=== PATIENT | female | born 1960 | race Caucasian/White ===

== ENCOUNTER 2021-06-07 07:49 | Outpatient (REF) | payer OTHER, SELFPAY ==
[2021-06-07 08:04] LABS: MANUAL DIFF FLAG NO
[2021-06-07 08:06] LABS: Basophils Percent Auto 0.6 % (0-2); Eosinophils Absolute Auto 0.2 X10*3/uL (0.0-0.4); Eosinophils Percent Auto 3.3 % (0-4); Hematocrit 43.6 % (37-47); Imm Gran Abs Auto 0.01 X10*3/uL (0.00-0.03); Imm Gran Pct Auto 0.2 % (0.0-0.4); Lymphocytes Absolute Auto 2.1 X10*3/uL (1.2-4.9); Lymphocytes Percent Auto 40.6 % (20-40); Mean Corpuscular HGB Conc 32.1 g/dl (31.0-35.0); Mean Corpuscular Hemoglobin 27.5 pg (27.0-33.0); Mean Corpuscular Volume 85.7 fL (80-98); Mean Platelet Volume 9.5 fL (9.4-12.3); Monocytes Absolute Auto 0.5 X10*3/uL (0.1-1.2); Monocytes Percent Auto 10.2 % (2-11); Neutrophils Absolute Auto 2.4 X10*3/uL (2.0-8.3); Neutrophils Percent Auto 45.1 % (45-73); Platelet Count 310 X10*3/uL (160-400); Red Blood Count 5.09 X10*6/uL (4.20-5.50); Red Cell Distribution Width 13.4 % (11.0-16.0); White Blood Count 5.2 X10*3/uL (4.8-10.8)
[2021-06-07 08:40] LABS: Alanine Aminotransferase 17 U/L (0-31); Alkaline Phosphatase 54 U/L (39-117); Anion Gap 11 (12-20); Aspartate Amino Transferase 16 U/L (5-31); Bilirubin Total 0.7 mg/dL (0.0-1.0); Blood Urea Nitrogen 14 mg/dL (9-16); Calcium 9.8 mg/dL (8.4-10.2); Carbon Dioxide 29 mmol/L (22-29); Chloride 107 mmol/L (96-108); Cholesterol 211 mg/dL; Estimated Glomerular Filt Rate > 60; Glucose Fasting 89 mg/dL (60-99); HDL Cholesterol 51 mg/dL; LDL Cholesterol Calculated 130 mg/dl; Potassium 4.7 mmol/L (3.3-5.1); Sodium 142 mmol/L (135-145); Total Protein 6.7 g/dL (6.5-8.0); Triglycerides 154 mg/dL
== END 2021-06-07 07:50 | disposition home or self-care (01) ==
LOC: HO.LAB 07:49
PROVIDERS: PCP Internal Medicine; Visit Provider Internal Medicine
DX: Z00.00 Encounter for general adult medical examination without abnormal findings (principal); E03.9 Hypothyroidism, unspecified; E11.9 Type 2 diabetes mellitus without complications
CPT/HCPCS: 36415; 80053; 80061; 84443; 85025

== ENCOUNTER → 2021-11-14 07:36 | Outpatient (BNVA) | payer OTHER, SELFPAY | PROVIDERS: PCP Internal Medicine; Referring Provider Internal Medicine; Visit Provider Physician Assistant ==

== ENCOUNTER 2022-02-18 09:51 | Day surgery (SDC) | payer OTHER, SELFPAY ==
[2022-02-13 08:22] VITALS: BMI 28.2
--- NOTE | 2022-02-17 10:56 | P.CONAN_ITS ---
Documented by User: Arti Augustin NP 02/17/22 10:56 HPI - Anesthesia Eval Consult details Narrative: 61yo F for Colonoscopy PMFSH Active Problems Active Problems: All Active Problems (Updated 11/14/21 @ 08:28 by Viviana Baig PA-C) Encounter for screening colonoscopy (Acute) Asthma (Acute) Physical exam (Acute) Past Medical History Medical History Asthma Family History Family History Mother No problems noted. Father No problems noted. Surgical History Surgical History History of appendectomy History of section History of tonsillectomy Hx of colonoscopy Hx of wisdom tooth extraction Social History Social History Housing: House Patient Tobacco Use Status: Former Tobacco user Quit Date: 20 yrs ago Tobacco use type: Cigarette e-Cigarette/Vaping Use: Never Used Second Hand Smoke Exposure: No Use of substances other than those prescribed or required for medical reasons: No Are you DNR?: No Advance Directives: No Advance Directives Information Provided: Yes service: No Current occupational status: employed Meds Allergies Allergy/AdvReac Type Severity Reaction Status Date / Time No Known Allergies Allergy Verified 11/14/21 07:45 Home Medications Medication Instructions Recorded Confirmed Last Taken Type albuterol sulfate 90 mcg/actuation 2 puff INHALATION Q4-6H PRN 06/05/21 11/14/21 Unknown History aerosol inhaler loratadine 10 mg tablet (Claritin) 10 mg PO DAILY 11/14/21 11/14/21 Unknown History Exam Exam Date and Time: February 17, 2022 1056 Height,Weight and Vital Signs: Height 5 ft 6 in Weight 79.379 kg Assessment and Plan Assessment Anesthesia Assessment: Chart Reviewed Documented by User: Faisal Yost MD 02/18/22 11:21 COUNTS INCLUDE 234 BEDS AT THE [facility] Past Medical History Medical History Asthma Family History Family History Mother No problems noted. Father No problems noted. Family history of problems with anesthesia: No Surgical History Surgical History History of appendectomy History of section History of tonsillectomy Hx of colonoscopy Hx of wisdom tooth extraction History of Problems with Anesthesia: No Social History Social History Housing: House Patient Tobacco Use Status: Former Tobacco user Quit Date: 20 yrs ago Tobacco use type: Cigarette e-Cigarette/Vaping Use: Never Used Second Hand Smoke Exposure: No Use of substances other than those prescribed or required for medical reasons: No Are you DNR?: No Advance Directives: No Advance Directives Information Provided: Yes service: No Current occupational status: employed Meds Allergies Allergy/AdvReac Type Severity Reaction Status Date / Time No Known Allergies Allergy Verified 11/14/21 07:45 Home Medications Medication Instructions Recorded Confirmed Last Taken Type albuterol sulfate 90 mcg/actuation 2 puff INHALATION Q4-6H PRN 06/05/21 11/14/21 Unknown History aerosol inhaler loratadine 10 mg tablet (Claritin) 10 mg PO DAILY 11/14/21 11/14/21 Unknown History Exam Airway Mallampati Class: I TM Dist: >3cm Neck ROM: Full Loose/Missing/Broken Teeth: Yes Assessment and Plan Assessment Anesthesia Assessment: Anesthesia Plan Discussed Final Anesthetic Review Family History of Problems with Anesthesia: No History of Problems with Anesthesia: No NPO: Yes ASA Class: II Final Preanesthetic Review: No Changes in Pt Med Stat, Meds/Allgs Chart Reviewed , Consent Obtained/Reviewed and Anes Risks/Benef Reviewed Patient Risk: Low Procedure Risk: Low Anesthetic Plan Anesthetic Plan: MAC: Disposition: Standard PACU
--- NOTE | 2022-02-18 10:01 | P.HPSUR_ITS ---
Pre-Procedural Eval Section A Date of Service: 02/18/22 Section B Chief Complaint: screening Relevant Family History (Specify if Yes): No Relevant Social History: None Present Medications: see Short Stay Collaborative assessment Medical History: Significant History (Asthma) History of Previous Operations: Relevant previous surgery/procedure and date(s) (History of appendectomy History of section History of tonsillectomy) Allergies: Allergies Allergy/AdvReac Type Severity Reaction Status Date / Time No Known Allergies Allergy Verified 11/14/21 07:45 Review of Systems Sugical H&P ROS: Negative: Constitution, Cardiovascular, Respiratory, Neurolo gical, Psychiatric, Hem-Onc, Allergic/Immunologic, Gastrointestinal, Genitourinary, Musculoskeletal, Integumentary, Endocrine and Eyes/Ears/Nose/Throat Exam Surgical H&P Exam: Normal: HEENT, Normal: Heart, Normal: Lungs, Normal: Extremities, Normal: Abdomen, Normal: Skin and Normal: Neurological Plan Diagnosis/Plan: Unchanged I have reviewed the history and physical and performed a pertinent physical examination on my patient. No changes have occurred unless specified.
[2022-02-18 10:07] VITALS: BP 123/82; PULSE 77; RESP 16; TEMP 36.6; O2SAT 96
[2022-02-18] MEDS: Lactated Ringers 1,000 ML 100 ML IVCONT (10:29)
--- NOTE | 2022-02-18 10:48 | PM.OP ---
Brief Operative Note Date of Service: 02/18/22 Pre-op diagnosis: screening colonoscopy Post-op diagnosis: same Procedure: see op note Surgeon: Jesica Banuelos MD Anesthesia: MAC Was an International Travel Consultant used for this Procedure?: No Estimated blood loss (mL): 0 Condition: stable Disposition: PACU
--- NOTE | 2022-02-18 10:49 | W.PM.OPN ---
Operative Note Operative Note Date of Service: 02/18/22 Narrative: Operative Information Procedure Description: Colonoscopy Indication: screening colonoscopy Anesthesia: MAC COLONOSCOPY Instrument: Olympus variable stiffness pediatric scope 190L Colonoscopy Monitoring: Vital signs and clinical assessment, continuous EKG monitoring, Pulse oximetry, Carbon Dioxide monitoring and blood pressure monitoring were done throughout the procedure. Colon withdrawal time was 9 minutes. Procedure: The patient was placed in the left lateral decubitis position and pre-procedure medications were administered. After a digital rectal examination of the ano-rectum, the video colonoscope was inserted into the rectum and advanced through the colon to the cecum/TI. The colonoscope was slowly withdrawn in a retrograde panoramic fashion and the colon mucosa was carefully examined including a retroflexed view of the rectum. Findings and interventions are described below. Procedure Difficulty: moderate, pressure applied to reach cecum Findings: Terminal Ileum-normal Right sided retroflexion --normal Cecum:normal Ascending Colon: 5-6 mm sessile polyp removed with cold forceps Transverse Colon -normal Descending Colon:normal Sigmoid Colon: moderate severe diverticulosis with thickened mucosa Rectum: Retroflexion with medium sized internal hemorrhoids, grade I Anorectum - normal Colon preparation: [place] Bowel Preparation Scale Right colon; 3 Transverse colon: 2 Left colon; 2 (0 = Unprepared colon segment with mucosa not seen due to solid stool that cannot be cleared. 1 = Portion of mucosa of the colon segment seen, but other areas of the colon segment not well seen due to staining, residual stool and/or opaque liquid. 2 = Minor amount of residual staining, small fragments of stool and/or opaque liquid, but mucosa of colon segment seen well. 3 = Entire mucosa of colon segment seen well with no residual staining, small fragments of stool or opaque liquid) Impression and Post Procedure Diagnosis: polyp internal hemorrhoids diverticular disease Plan: High fiber diet leaflet Avoid straining at stool, epsom salts and sitz bath, anusol supps or cream Repeat Colonoscopy in 5-7 years if adenomatous polyp, 10 yrs if benign or earlier if clinically indicated Above findings were reviewed with the patient and relevant handouts were provided if indicated.
[2022-02-18 11:35] VITALS: BP 104/64; PULSE 68; RESP 14; TEMP 36.6; O2SAT 98
[2022-02-18 11:50] VITALS: BP 116/74; PULSE 62; RESP 16; TEMP 36.6; O2SAT 97
== END 2022-02-18 12:22 | disposition home or self-care (01) ==
PROVIDERS: PCP Internal Medicine; Visit Provider Internal Medicine Gastroenterology
PROC: 0DJD8ZZ Inspection of Lower Intestinal Tract, Via Natural or Artificial Opening Endoscopic (ICD-10-PCS; CPT 45378; principal; 2022-02-18 11:00)
DX: Z12.11 Encounter for screening for malignant neoplasm of colon (principal); Z80.0 Family history of malignant neoplasm of digestive organs; K63.5 Polyp of colon; K57.30 Diverticulosis of large intestine without perforation or abscess without bleeding; K64.0 First degree hemorrhoids; K59.00 Constipation, unspecified; J45.909 Unspecified asthma, uncomplicated; Z87.891 Personal history of nicotine dependence
CPT/HCPCS: 45380; 88305

== ENCOUNTER 2022-06-10 09:43 | Outpatient (REF) | payer OTHER, SELFPAY ==
--- NOTE | ~2022-06-10 | XR_ITS ---
EXAMINATION: BILATERAL HIP SERIES CLINICAL INFORMATION: Pain in the hips COMPARISON: None TECHNIQUE: AP and lateral views of each hip FINDINGS: Right hip: The hip joint and surrounding bone and soft tissues are normal. No fracture or degenerative change. Left hip: Hip joint normal without degenerative change. Surrounding bone and soft tissues unremarkable. XR/XR hip LT 1V IMPRESSION: Normal x-ray series of the right and left hips
--- NOTE | ~2022-06-10 | XR_ITS ---
EXAMINATION: XR LUMBOSACRAL SPINE CLINICAL INFORMATION: Dorsalgia. Hip pain and lower back pain. COMPARISON: None TECHNIQUE: Three views of the lumbosacral spine. FINDINGS: Vertebral bodies are normally aligned, normal height. Multilevel degenerative disc changes with endplate osteophytes and mild disc space narrowing at all levels beginning at the T10-T11 disc space and extending through L5-S1. Facet joints appear unremarkable. There is no fracture or bone lesion. The partially visualized pelvis including sacroiliac joints is normal. Surrounding soft tissues normal. XR/XR lumbar spine 2-3V IMPRESSION: Mild multilevel spondylosis throughout the visualized thoracolumbar sacral spine.
--- NOTE | ~2022-06-10 | XR_ITS ---
EXAMINATION: BILATERAL HIP SERIES CLINICAL INFORMATION: Pain in the hips COMPARISON: None TECHNIQUE: AP and lateral views of each hip FINDINGS: Right hip: The hip joint and surrounding bone and soft tissues are normal. No fracture or degenerative change. Left hip: Hip joint normal without degenerative change. Surrounding bone and soft tissues unremarkable. XR/XR hip RT min 2V IMPRESSION: Normal x-ray series of the right and left hips
[2022-06-10 09:59] LABS: MANUAL DIFF FLAG NO
[2022-06-10 10:55] LABS: Basophils Percent Auto 0.5 % (0-2); Eosinophils Absolute Auto 0.1 X10*3/uL (0.0-0.4); Eosinophils Percent Auto 2.7 % (0-4); Hemoglobin 13.7 g/dl (12.0-16.0); Imm Gran Abs Auto 0.01 X10*3/uL (0.00-0.03); Imm Gran Pct Auto 0.2 % (0.0-0.4); Lymphocytes Absolute Auto 1.7 X10*3/uL (1.2-4.9); Lymphocytes Percent Auto 41.4 % (20-40); Mean Corpuscular HGB Conc 32.6 g/dl (31.0-35.0); Mean Corpuscular Hemoglobin 28.2 pg (27.0-33.0); Mean Corpuscular Volume 86.6 fL (80.0-98.0); Mean Platelet Volume 9.9 fL (9.4-12.3); Monocytes Absolute Auto 0.4 X10*3/uL (0.1-1.2); Monocytes Percent Auto 10.7 % (2-11); Neutrophils Absolute Auto 1.8 x10*3/uL (2.0-8.3); Neutrophils Percent Auto 44.5 % (45-73); Platelet Count 322 X10*3/uL (160-400); Red Blood Count 4.85 X10*6/uL (4.20-5.50); Red Cell Distribution Width 13.2 % (11.0-16.0); White Blood Count 4.1 X10*3/uL (4.8-10.8)
[2022-06-10 11:19] LABS: Alanine Aminotransferase 23 U/L (0-31); Albumin Level 4.1 g/dL (3.5-5.0); Alkaline Phosphatase 51 U/L (39-117); Anion Gap 13 (12-20); Aspartate Amino Transferase 19 U/L (5-31); Bilirubin Total 0.6 mg/dL (0.0-1.0); Blood Urea Nitrogen 17 mg/dL (9-16); Calcium 9.3 mg/dL (8.4-10.2); Carbon Dioxide 28 mmol/L (22-29); Chloride 106 mmol/L (96-108); Cholesterol 219 mg/dL; Estimated Glomerular Filt Rate > 60; Glucose Fasting 85 mg/dL (60-99); HDL Cholesterol 50 mg/dL; LDL Cholesterol Calculated 149 mg/dl; Potassium 4.9 mmol/L (3.3-5.1); Sodium 142 mmol/L (135-145); Total Protein 6.8 g/dL (6.5-8.0); Triglycerides 102 mg/dL
[2022-06-10 11:29] LABS: Thyroid Stimulating Hormone 0.87 uIU/mL (0.32-4.0)
== END 2022-06-10 09:44 | disposition home or self-care (01) ==
LOC: HO.XRAY 09:43
PROVIDERS: PCP Internal Medicine; Visit Provider Internal Medicine
DX: Z13.0 Encounter for screening for diseases of the blood and blood-forming organs and certain disorders involving the immune mechanism (principal); I10 Essential (primary) hypertension; E78.5 Hyperlipidemia, unspecified; E03.9 Hypothyroidism, unspecified; M54.9 Dorsalgia, unspecified; M25.552 Pain in left hip; M25.551 Pain in right hip
CPT/HCPCS: 36415; 72100; 73501; 73502; 80053; 80061; 84443; 85025

== ENCOUNTER 2023-06-11 08:44 | Outpatient (AMB) | payer OTHER, SELFPAY ==
[2023-06-11 08:46] VITALS: BP 122/68; PULSE 62; O2SAT 99; BMI 27.6
--- NOTE | 2023-06-11 08:46 | MHC.PC.OV ---
Vital Signs 06/11/23 08:46 Height 5 ft 6 in Weight 171 lb BMI 27.6 BP 122/68 Blood Pressure Location Lt brachial Position Sitting Pulse 62 Pulse Source Pulse Oximeter Pulse Oximetry (%) 99 Oxygen Delivery Method Room Air Intake Visit Reasons: Annual Exam Appraisal Analyst Required: No Prosthetics Assistant: Not Required per policy Accompanied by: Self / Same As Patient Allergies No Known Allergies Allergy (Verified 06/11/23 08:47) Medication List - Last Reconciled 06/11/23 by Rodriguez Feldman MD albuterol sulfate 90 mcg/actuation 2 puffs inhalation Q4-6H PRN loratadine (Claritin) 10 mg PO DAILY montelukast 10 mg PO BEDTIME Tobacco use date assessed: 06/11/23 Dental Screening Dental Screen Date: 06/11/23 Did you have a dental visit in the last 12 months?: Yes Did you have a dental problem in the last 6 months where you did not have access to dental care?: No Was dental information given to patient?: Patient has dentist HPI Annual Exam HPI Details asthma; stable [facility] Medical History (Updated 06/11/23 @ 09:21 by Rodriguez Feldman MD) Physical exam Asthma Surgical History Hx of wisdom tooth extraction Hx of colonoscopy History of section History of tonsillectomy History of appendectomy Family History Mother No problems noted. Father No problems noted. Social History Housing: House Patient Tobacco Use Status: Former Tobacco user Quit Date: 20 yrs ago Tobacco use type: Cigarette e-Cigarette/Vaping Use: Never Used Second Hand Smoke Exposure: No service: No Current occupational status: employed Cognitive needs: No Hearing needs: No Vision needs: No Questionnaire PHQ-9 Over the last 2 weeks, how often have you been bothered by any of the following problems? 1. Little interest or pleasure in doing things: not at all 2. Feeling down, depressed, or hopeless: not at all 3. Trouble falling or staying asleep, or sleeping too much: not at all 4. Feeling tired or having little energy: not at all 5. Poor appetite or overeating: not at all 6. Feeling bad about yourself - or that you are a failure or have let yourself or your family down: not at all 7. Trouble concentrating on things, such as reading the newspaper or watching television: not at all 8. Moving or speaking so slowly that other people could have noticed. Or the opposite - being so fidgety or restless that you have been moving around a lot more than usual: not at all 9. Thoughts that you would be better off or of hurting yourself in some way: not at all Total score: 0 Depression Screening Interpretation: Negative 75965 - PHQ-9 Billing: Yes Source: Developed by Drs. Caleb Lovett, Sarah Smith, Reinier Galdamez and colleagues, with an educational carroll from [employer]. Thrive Questionnaire Date Thrive assessed: 06/11/23 I am a: Patient What is your living situation today?: I have a steady place to live Within the past 12 months, did the food you bought not last and you didn't have the money to get more?: Never true Within the past 12 months, did you worry whether your food would run out before you got money to buy more?: Never true Do you have trouble paying for medicines?: No Do you have trouble getting transportation to medical appointments?: No Do you have trouble paying your heating and electricity bill?: No Do you have trouble taking care of your child, family member or friend?: No Do you have trouble with day-to-day activities such as bathing, preparing meals, shopping, managing finances, etc.?: No Are you currently unemployed and looking for a job?: No Are you interested in more education?: No Please select the resources that you would like help with: None AUDIT C Alcohol Use Questionnaire (AUDIT-C) 1. How often do you have a drink containing alcohol?: 2-3 times a week 2. How many drinks containing alcohol do you have on a typical day when you are drinking?: 1 or 2 3. How often do you have six or more drinks on one occasion?: Never Total Score: 3 Score Reviewed/Action Taken: Yes NATA-7 AMB Questionnaire NATA-7 Date NATA - 7 assessed: 06/11/23 Feeling nervous, anxious, or on edge: 0 = Not at all Not being able to stop or control worryin = Not at all Worrying too much about different things: 0 = Not at all Trouble relaxin = Not at all Being so restless that it is hard to sit still: 0 = Not at all Becoming easily annoyed or irritable: 0 = Not at all Feeling afraid as if something awful might happen: 0 = Not at all Total NATA-7 score (0-4 normal; 5-9 mild; 10-14 moderate; 15-21 severe): 0 Source: Developed by Drs. Caleb Lovett, Sarah Smith, Reinier Galdamez and colleagues, with an educational carroll from [employer]. NATA-7 Assessment Billing NATA-7 Assessment Tool: NATA-7 Assessment 54364 Review of Systems Const Denies chills, Denies fatigue, Denies headache(s) and Denies weight loss Eyes Denies change in vision, Denies diplopia and Denies eye pain ENT Denies vertigo, Denies dizziness, Denies headache(s) and Denies nasal discharge Card Denies chest pain, Denies rapid heart rate and Denies dyspnea on exertion Resp Denies chest congestion, Denies cough, Denies pain with cough and Denies dyspnea on exertion GI Denies abdominal pain, Denies hematochezia and Denies change in bowel habits Musc Denies myalgias, Denies arthralgias and Denies joint swelling Skin/Breast Denies lesions and Denies unusual bruising Neuro Denies vertigo, Denies dizziness, Denies headache(s) and Denies focal weakness Endo Denies fatigue Physical exam (Primary Care) Vital Signs: Last Vital Signs Pulse 62 06/11/23 08:46 BP 122/68 06/11/23 08:46 Pulse Ox 99 06/11/23 08:46 Oxygen Delivery Method Room Air 06/11/23 08:46 BMI result Body Mass Index 27.6 Tobacco/Smoking Status: Tobacco use Status Tobacco use date assessed 06/11/23 06/11/23 08:52 Patient Tobacco Use Status Former Tobacco user 06/11/23 08:52 Tobacco use type Cigarette 06/11/23 08:52 e-Cigarette/Vaping Use Never Used 06/11/23 08:52 PHQ-9: PHQ-9 Score PHQ-9: Total score 0 06/11/23 08:52 Depression Screening Interpretation: Negative Thrive Assessment: Date of Thrive Assessment Date Thrive assessed 06/11/23 06/11/23 08:52 Const General: cooperative, healthy appearing and no acute distress Orientation/consciousness: oriented to person, oriented to place and oriented to time HENMT Head: Yes normal to inspection, Yes normocephalic and Yes atraumatic Mouth: Normal oral and palatal mucosa present and tongue normal Throat: Yes posterior oropharynx normal and Yes uvula midline Eyes General: appearance normal, both eyes and all related structures Neck Neck: Yes normal visual inspection, Yes full ROM and Yes no lymphadenopathy Thyroid: Thyroid normal Carotids: normal carotid upstroke Chest Chest palpation & inspection: normal inspection of the chest Resp Effort & Inspection: normal respiratory effort and able to speak in complete sentences Auscultation: clear to auscultation bilaterally Cardio Jugular venous distension: no JVD Palpation: normal PMI Rate: regular rate Rhythm: regular rhythm Heart sounds: S1 normal heart sound present and S2 normal heart sound present GI Inspection: Yes normal to inspection Palpation (GI): Soft to palpation and No hepatosplenomegaly present Auscultation: normal bowel sounds General: Yes no CVA tenderness Back/Spine/Pelvis Back: no CVA tenderness Skin General skin exam: no rashes or lesions noted Neuro General: oriented to person, oriented to place and oriented to time Extrem General: Yes normal to inspection and Yes full ROM Assessment and Plan Assessment & Plan (1) Physical exam: Code(s): Z00.00 - Encounter for general adult medical examination without abnormal findings Plan: stable; do labs (2) Asthma: Code(s): J45.909 - Unspecified asthma, uncomplicated Plan: stable; same rx Orders: Orders Thyroid Stimulating Hormone Today E03.9 - Hypothyroidism, unspecified Lipid Panel Today E78.5 - Hyperlipidemia, unspecified Comprehensive Mather. Panel Fast Today N28.9 - Disorder of kidney and ureter, unspecified Complete Blood Count Auto Diff Today D64.9 - Anemia, unspecified Coding Level of Care Code Est Pt Prev Care 40-64y(74246) Diagnoses Physical exam Z00.00 Asthma J45.909 Additional Codes NATA-7 Assessment Billing - NATA-7 Assessment Tool: NATA-7 Assessment 60944 ([id number])
== END 2023-06-11 09:09 | disposition home or self-care (01) ==
PROVIDERS: PCP Internal Medicine; Visit Provider Internal Medicine
DX: Z00.00 Encounter for general adult medical examination without abnormal findings (principal); J45.909 Unspecified asthma, uncomplicated
CPT/HCPCS: 99396

== ENCOUNTER 2023-06-11 09:18 | Outpatient (REF) | payer OTHER, SELFPAY ==
[2023-06-11 09:46] LABS: MANUAL DIFF FLAG NO
[2023-06-11 10:38] LABS: Basophils Percent Auto 0.6 % (0-2); Eosinophils Absolute Auto 0.1 X10*3/uL (0.0-0.4); Eosinophils Percent Auto 2.8 % (0-4); Hematocrit 44.4 % (37.0-47.0); Hemoglobin 14.5 g/dl (12.0-16.0); Imm Gran Abs Auto 0.02 X10*3/uL (0.00-0.03); Imm Gran Pct Auto 0.4 % (0.0-0.4); Lymphocytes Percent Auto 40.4 % (20-40); Mean Corpuscular HGB Conc 32.7 g/dl (31.0-35.0); Mean Corpuscular Hemoglobin 28.3 pg (27.0-33.0); Mean Corpuscular Volume 86.5 fL (80.0-98.0); Mean Platelet Volume 10.2 fL (9.4-12.3); Monocytes Absolute Auto 0.5 X10*3/uL (0.1-1.2); Monocytes Percent Auto 10.7 % (2-11); Neutrophils Absolute Auto 2.3 x10*3/uL (2.0-8.3); Neutrophils Percent Auto 45.1 % (45-73); Platelet Count 318 X10*3/uL (160-400); Red Blood Count 5.13 X10*6/uL (4.20-5.50); Red Cell Distribution Width 13.7 % (11.0-16.0); White Blood Count 5.1 X10*3/uL (4.8-10.8)
[2023-06-11 11:38] LABS: Alanine Aminotransferase 16 U/L (0-31); Albumin Level 4.1 g/dL (3.5-5.0); Alkaline Phosphatase 52 U/L (39-117); Anion Gap 12 (12-20); Aspartate Amino Transferase 18 U/L (5-31); Bilirubin Total 0.5 mg/dL (0.0-1.0); Blood Urea Nitrogen 19 mg/dL (9-16); Calcium 10.4 mg/dL (8.4-10.2); Carbon Dioxide 27 mmol/L (22-29); Chloride 109 mmol/L (96-108); Cholesterol 214 mg/dL (<200); Estimated Glomerular Filt Rate > 60; Glucose Fasting 90 mg/dL (60-99); HDL Cholesterol 45 mg/dL (>40); LDL Cholesterol Calculated 137 mg/dL (<100); Potassium 5.1 mmol/L (3.3-5.1); Sodium 143 mmol/L (135-145); Thyroid Stimulating Hormone 0.96 uIU/mL (0.32-4.0); Total Protein 6.9 g/dL (6.5-8.0); Triglycerides 160 mg/dL (<150)
== END 2023-06-11 09:19 | disposition home or self-care (01) ==
LOC: HO.LAB 09:18
PROVIDERS: PCP Internal Medicine; Visit Provider Internal Medicine
DX: D64.9 Anemia, unspecified (principal); E03.9 Hypothyroidism, unspecified; N28.9 Disorder of kidney and ureter, unspecified; E78.5 Hyperlipidemia, unspecified
CPT/HCPCS: 36415; 80053; 80061; 84443; 85025

== ENCOUNTER 2024-07-13 08:26 | Outpatient (AMB) | payer OTHER, SELFPAY ==
[2024-07-13 08:40] VITALS: BP 112/62; PULSE 68; O2SAT 98; BMI 28.4
--- NOTE | 2024-07-13 08:40 | A.OFFPC_ITS ---
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 Required: No Accompanied by: Self / Same As Patient Allergies No Known Allergies Allergy (Verified 07/13/24 08:40) Medication List - Last Reconciled 07/13/24 by Rodriguez Feldman MD albuterol sulfate 90 mcg/actuation 2 puffs inhalation Q4-6H PRN loratadine (Claritin) 10 mg PO DAILY montelukast 10 mg PO BEDTIME Tobacco use date assessed: 07/13/24 Dental Screening Dental Screen Date: 07/13/24 Did you have a dental visit in the last 12 months?: Yes Did you have a dental problem in the last 6 months where you did not have access to dental care?: No Was dental information given to patient?: Patient has dentist HPI Annual Physical HPI Details asthma stable on rx [facility] Medical History (Updated 06/11/23 @ 09:21 by Rodriguez Feldman MD) Physical exam Asthma Surgical History Hx of wisdom tooth extraction Hx of colonoscopy History of section History of tonsillectomy History of appendectomy Family History Mother No problems noted. Father No problems noted. Social History Housing: House Patient Tobacco Use Status: Former Tobacco user Tobacco use type: Cigarette e-Cigarette/Vaping Use: Never Used Second Hand Smoke Exposure: No service: No Current occupational status: employed Cognitive needs: No Hearing needs: No Vision needs: No Questionnaire PHQ-9 Over the last 2 weeks, how often have you been bothered by any of the following problems? 1. Little interest or pleasure in doing things: not at all 2. Feeling down, depressed, or hopeless: not at all 3. Trouble falling or staying asleep, or sleeping too much: several days 4. Feeling tired or having little energy: several days 5. Poor appetite or overeating: not at all 6. Feeling bad about yourself - or that you are a failure or have let yourself or your family down: not at all 7. Trouble concentrating on things, such as reading the newspaper or watching television: not at all 8. Moving or speaking so slowly that other people could have noticed. Or the opposite - being so fidgety or restless that you have been moving around a lot more than usual: not at all 9. Thoughts that you would be better off or of hurting yourself in some way: not at all Total score: 2 Source: Developed by Drs. Caleb Lovett, Sarah Smith, Reinier Galdamez and colleagues, with an educational carroll from [employer]. Thrive Questionnaire Date Thrive assessed: 06/22/24 I am a: Patient What is your living situation today?: I have a steady place to live Within the past 12 months, did the food you bought not last and you didn't have the money to get more?: Never true Within the past 12 months, did you worry whether your food would run out before you got money to buy more?: Never true Do you have trouble paying for medicines?: No Do you have trouble getting transportation to medical appointments?: No Do you have trouble paying your heating and electricity bill?: No Do you have trouble taking care of your child, family member or friend?: No Do you have trouble with day-to-day activities such as bathing, preparing meals, shopping, managing finances, etc.?: No Are you currently unemployed and looking for a job?: No Are you interested in more education?: No Please select the resources that you would like help with: None Currently or been in a relationship where the following occur: No concerns reported THRIVE Score: 0 AUDIT C Alcohol Use Questionnaire (AUDIT-C) 1. How often do you have a drink containing alcohol?: 2-3 times a week 2. How many drinks containing alcohol do you have on a typical day when you are drinking?: 1 or 2 3. How often do you have six or more drinks on one occasion?: Never Total Score: 3 Score Reviewed/Action Taken: Yes NATA-7 AMB Questionnaire NATA-7 Date NATA - 7 assessed: 07/13/24 Feeling nervous, anxious, or on edge: 0 = Not at all Not being able to stop or control worryin = Not at all Worrying too much about different things: 0 = Not at all Trouble relaxin = Not at all Being so restless that it is hard to sit still: 0 = Not at all Becoming easily annoyed or irritable: 0 = Not at all Feeling afraid as if something awful might happen: 0 = Not at all Total NATA-7 score (0-4 normal; 5-9 mild; 10-14 moderate; 15-21 severe): 0 Source: Developed by Drs. Caleb Lovett, Sarah Smith, Reinier Galdamez and colleagues, with an educational carroll from [employer]. NATA-7 Assessment Billing NATA-7 Assessment Tool: NATA-7 Assessment 51632 Review of Systems Const Denies chills, Denies fatigue, Denies headache(s) and Denies weight loss Eyes Denies change in vision, Denies diplopia and Denies eye pain ENT Denies vertigo, Denies dizziness, Denies headache(s) and Denies nasal discharge Card Denies chest pain, Denies rapid heart rate and Denies dyspnea on exertion Resp Denies chest congestion, Denies cough, Denies pain with cough and Denies dyspnea on exertion GI Denies abdominal pain, Denies hematochezia and Denies change in bowel habits Musc Denies myalgias, Denies arthralgias and Denies joint swelling Skin/Breast Denies lesions and Denies unusual bruising Neuro Denies vertigo, Denies dizziness, Denies headache(s) and Denies focal weakness Endo Denies fatigue Physical exam (Primary Care) Vital Signs: Last Vital Signs Pulse 68 07/13/24 08:40 BP 112/62 07/13/24 08:40 Pulse Ox 98 07/13/24 08:40 Oxygen Delivery Method Room Air 07/13/24 08:40 BMI result Body Mass Index 28.4 Tobacco/Smoking Status: Tobacco use Status Tobacco use date assessed 07/13/24 07/13/24 08:45 Patient Tobacco Use Status Former Tobacco user 07/13/24 08:45 Tobacco use type Cigarette 07/13/24 08:45 e-Cigarette/Vaping Use Never Used 07/13/24 08:45 PHQ-9: PHQ-9 Score PHQ-9: Total score 2 07/13/24 08:45 Thrive Assessment: Date of Thrive Assessment Date Thrive assessed 06/22/24 07/13/24 08:45 Currently or been in a relationship where the following occur: No concerns reported Const General: cooperative, healthy appearing and no acute distress Orientation/consciousness: oriented to person, oriented to place and oriented to time HENMT Head: Yes normal to inspection, Yes normocephalic and Yes atraumatic Mouth: Normal oral and palatal mucosa present and tongue normal Throat: Yes posterior oropharynx normal and Yes uvula midline Eyes General: appearance normal, both eyes and all related structures Neck Neck: Yes normal visual inspection, Yes full ROM and Yes no lymphadenopathy Thyroid: Thyroid normal Carotids: normal carotid upstroke Chest Chest palpation & inspection: normal inspection of the chest Resp Effort & Inspection: normal respiratory effort and able to speak in complete sentences Auscultation: clear to auscultation bilaterally Cardio Jugular venous distension: no JVD Palpation: normal PMI Rate: regular rate Rhythm: regular rhythm Heart sounds: S1 normal heart sound present and S2 normal heart sound present GI Inspection: Yes normal to inspection Palpation (GI): Soft to palpation and No hepatosplenomegaly present Auscultation: normal bowel sounds General: Yes no CVA tenderness Back/Spine/Pelvis Back: no CVA tenderness Skin General skin exam: no rashes or lesions noted Neuro General: oriented to person, oriented to place and oriented to time Extrem General: Yes normal to inspection and Yes full ROM Coding Level of Care Code New Pt Prev Care 40-64y(15724) Diagnoses Physical exam Z00.00 Asthma J45.909 Additional Codes NATA-7 Assessment Billing - NATA-7 Assessment Tool: NATA-7 Assessment [id number] ([id number]) Assessment & Plan Assessment & Plan (1) Physical exam: Code(s): Z00.00 - Encounter for general adult medical examination without abnormal findings Category: Medical Plan: stable; do labs (2) Asthma: Code(s): J45.909 - Unspecified asthma, uncomplicated Category: Medical Plan: stable; same rx Orders: Orders Complete Blood Count Auto Diff Today Z13.0 - Encounter for screening for diseases of the blood and blood-forming organs and certain disorders involving the immune mechanism Lipid Panel Today Z13.220 - Encounter for screening for lipoid disorders Thyroid Stimulating Hormone Today Z13.29 - Encounter for screening for other suspected endocrine disorder Comprehensive [place]es[place]us. Panel Fast Today Z13.9 - Encounter for screening, unspecified Medications: Refilled montelukast 10 mg PO BEDTIME 90 tabs 8RF albuterol sulfate 90 mcg/actuation 2 puffs inhalation Q4-6H PRN 8.5 grams 5RF bronchospasm
== END 2024-07-13 09:02 | disposition home or self-care (01) ==
PROVIDERS: PCP Internal Medicine; Visit Provider Internal Medicine
DX: Z00.00 Encounter for general adult medical examination without abnormal findings (principal); J45.909 Unspecified asthma, uncomplicated

== ENCOUNTER 2024-09-19 08:16 | Outpatient (REF) | payer OTHER, SELFPAY ==
[2024-09-19 16:47] LABS: Influenza A PCR NEGATIVE (Negative); Influenza B PCR NEGATIVE (Negative); Resp Syncy Virus RNA Qual PCR NEGATIVE (Negative); SARS COV2 PCR INHOUSE NEGATIVE (Negative)
== END 2024-09-19 08:17 | disposition home or self-care (01) ==
LOC: HO.LAB 08:16
PROVIDERS: Physician Assistant; PCP Internal Medicine
DX: J06.9 Acute upper respiratory infection, unspecified (principal)
CPT/HCPCS: 0241U

== ENCOUNTER 2024-09-19 08:16 | Outpatient (AMB) | payer OTHER, SELFPAY ==
--- NOTE | 2024-09-19 09:17 | AM.OFFWIN_ITS ---
Intake Vital Signs 09/19/24 09:21 Weight 172 lb BP 122/88 Blood Pressure Location Lt brachial Position Sitting Pulse 86 Pulse Source Pulse Oximeter Temp 98.8 F Temp Source Oral Pulse Oximetry (%) 97 Oxygen Delivery Method Room Air Intake Visit Reasons: EP-swollen glands, cough Intake Note: Patient here for cough, swollen glands that started in june. Patient Tobacco Use Status: Former Tobacco user Allergies No Known Allergies Allergy (Verified 09/19/24 09:21) Do you need a note to return to daycare/school/sports/work: No HPI HPI Comments History of Present Illness Details History The patient is a 63-year-old female presenting with a persistent cough. The cough began in June, initially associated with severe allergies and was followed by multiple colds. The patient notes that her children were ill with walking pneumonia during this time, and despite improvement in their conditions after taking abx, her own symptoms have not resolved. She has not sought medical treatment for this until now. The patient reports no fevers but mentions swelling on one side of her throat over the weekend, causing discomfort when coughing. She has been managing her cough with [id number] medications, specifically DayQuil and NyQuil. However, excessive use of these medications has led to throat irritation, prompting her to discontinue them. She has also used Albuterol inhalations for her cough-predominant asthma, with limited relief. The patient denies shortness of breath or wheezing. Her cough has been notably p ersistent, leading to today's consultation. Physical Exam General: Cooperative, healthy appearing, comfortable and no acute distress Orientation/consciousness: Patient oriented x3 Limitations: No limitations Head: Normal to inspection Ears: Hearing grossly normal bilaterally, external ears normal and TM's normal bilaterally Nose: Normal external nose present, Normal nares present and No nasal discharge present Face and sinus: Normal facial exam and Yes sinuses nontender Mouth: Normal oral and palatal mucosa present and moist mucous membranes Throat: Yes tonsils normal, Yes uvula midline. Posterior oropharynx erythema Eyes: Appearance normal, both eyes and all related structures Neck: Swollen glands on one side Respiratory: Clear to auscultation bilaterally. Normal respiratory effort, able to speak in complete sentences, Actively coughing, no respiratory distress, not tachypneic, no tripod positioning and no use of accessory muscles Cardiovascular: Regular rate and rhythm. Normal S1 and S2 Skin: No rashes or lesions noted Neuro: Patient oriented x3 Extremities: Normal to inspection and Yes no clubbing, cyanosis or edema PFSH Medical History (Updated 09/19/24 @ 09:35 by Juhi Nguyen PA-C) Physical exam Asthma Surgical History Hx of wisdom tooth extraction Hx of colonoscopy History of section History of tonsillectomy History of appendectomy Family History Mother No problems noted. Father No problems noted. Social History Housing: House Patient Tobacco Use Status: Former Tobacco user Tobacco use type: Cigarette e-Cigarette/Vaping Use: Never Used Second Hand Smoke Exposure: No service: No Current occupational status: employed Cognitive needs: No Hearing needs: No Vision needs: No Review of Systems Const All systems reviewed & are unremarkable except as noted in HPI and below Physical Exam Vital Signs: Last Vital Signs Temp 98.8 F 09/19/24 09:21 Pulse 86 09/19/24 09:21 BP 122/88 09/19/24 09:21 Pulse Ox 97 09/19/24 09:21 Oxygen Delivery Method Room Air 09/19/24 09:21 Assessment & Plan Assessment & Plan (1) Atypical pneumonia: Code(s): J18.9 - Pneumonia, unspecified organism Plan: Plan - Initiate Z-Leonel Azithromycin for suspected bacterial infection. - Prescribe Tessalon Perles Benzonatate for symptomatic cough relief. - Introduce a low-dose regimen of Prednisone 20 mg to assist with lung inflammation and ease breathing difficulty. - Conduct tests for Influenza, COVID-19, and Respiratory Syncytial Virus RSV to rule out common viral infections. - Advise wearing a mask to prevent possible transmission to others. Patient was informed and verbally consented to the use of an ambient scribe for clinic note documentation during this visit Orders: Orders SARS-CoV2/FLU/RSV Today J06.9 - Acute upper respiratory infection, unspecified Medications: New prednisone 20 mg PO QAM 5 tabs 0RF azithromycin For 250 mg dose pack: take 500 mg today (day 1), then 250 mg for 4 days (days 2-5) PO 6 tabs 0RF benzonatate 200 mg PO TID PRN 14 caps 0RF cough Coding Level of Care Code Est Pt Level 3 (77046) Diagnoses Atypical pneumonia J18.9
[2024-09-19 09:21] VITALS: BP 122/88; PULSE 86; TEMP 37.1; O2SAT 97
== END 2024-09-19 09:35 | disposition home or self-care (01) ==
PROVIDERS: PCP Internal Medicine; Visit Provider Physician Assistant
DX: J18.9 Pneumonia, unspecified organism (principal)

== ENCOUNTER 2024-11-26 09:17 | Outpatient (AMB) | payer OTHER, SELFPAY ==
[2024-11-26 10:05] VITALS: BP 122/80; PULSE 73; RESP 17; TEMP 36.7; O2SAT 97; BMI 28.1
--- NOTE | 2024-11-26 10:05 | MHC.OFFWIV ---
Intake Vital Signs 11/26/24 10:05 Height 5 ft 6 in Weight 174 lb BMI 28.1 BP 122/80 Blood Pressure Location Rt brachial Position Sitting Respiration 17 Pulse 73 Pulse Source Pulse Oximeter Temp 98.1 F Temp Source Oral Pulse Oximetry (%) 97 Oxygen Delivery Method Room Air Intake Visit Reasons: EP cough, congestion/?pneumonia Intake Note: Pt is here today c/o cough and chest congestion ? pneumonia x1week Patient Tobacco Use Status: Former Tobacco user Allergies No Known Allergies Allergy (Verified 11/26/24 10:09) HPI EP cough, congestion/?pneumonia HPI Details Patient is a 63-year-old female with underlying asthma and history of atypical pneumonia, who comes to the walk-in clinic complaining of 1 week of cough and congestion, and is worried about repeat pneumonia. She reports that she has been coughing pretty consistently since she was diagnosed, most of the fall and through the winter. She uses albuterol with short-term relief. She is not on a preventative asthma medication. She does travel extensively, and has been on planes and has taken cruises during this timeframe. She reports that 2 members of her household have been positive with the flu this past week. She does have some current sore throat and runny nose symptoms, along with the coughing fits that keep her up at night and are causing a headache. No report of malaise or myalgias, fever or chills, weakness or dizziness, nausea vomiting or diarrhea, chest pain or shortness of breath, or other significant associated symptoms. [facility] Medical History Physical exam Asthma Surgical History Hx of wisdom tooth extraction Hx of colonoscopy History of section History of tonsillectomy History of appendectomy Family History Mother No problems noted. Father No problems noted. Social History Housing: House Patient Tobacco Use Status: Former Tobacco user Tobacco use type: Cigarette e-Cigarette/Vaping Use: Never Used Second Hand Smoke Exposure: No service: No Current occupational status: employed Cognitive needs: No Hearing needs: No Vision needs: No Review of Systems Const All systems reviewed & are unremarkable except as noted in HPI and below Physical Exam Vital Signs: Last Vital Signs Temp 98.1 F 11/26/24 10:05 Pulse 73 11/26/24 10:05 Resp 17 11/26/24 10:05 BP 122/80 11/26/24 10:05 Pulse Ox 97 11/26/24 10:05 Oxygen Delivery Method Room Air 11/26/24 10:05 BMI result Body Mass Index 28.1 Const General: cooperative, no acute distress, alert, awake, Physically active and well groomed; No anxious, diaphoretic, intoxicated appearing, poor hygiene or tired appearing Nutritional Appearance: average body habitus Orientation/consciousness: oriented to person HEENT Head: Yes normal to inspection, Yes normocephalic and Yes atraumatic Ears: hearing grossly normal bilaterally, external ears normal, TM's normal bilaterally and EAC's normal General nose exam: Normal external nose present, Abnormal mucous membranes and turbinates present, Abnormal nasal septum present and Nasal discharge present Face and sinus: Yes normal facial exam, Yes sinuses nontender and Yes face symmetric Mouth: Normal oral and palatal mucosa present, lip normal and tongue normal Throat: Yes uvula midline, Yes abnormal tonsil (mildly erythematous bilaterally), No peritonsillar mass, Yes postnasal drainage, No uvular edema and No cobblestoning Eyes General: appearance normal, both eyes and all related structures Chest Chest palpation & inspection: normal palpation of entire chest wall Resp Effort & Inspection: normal respiratory effort, able to speak in complete sentences, normal respiratory pattern, no audible wheezes, Actively coughing, no grunting, not labored, no nasal flaring, no pursed lip breathing, no respiratory distress, no retractions, no stridor, no tripod positioning, no use of accessory muscles, No prolonged expiratory phase and symmetric chest movement Auscultation: clear to auscultation bilaterally, no crackles, no rales, no rhonchi, no wheezes, lung sounds not diminished and No rub present Cardio Palpation: normal PMI Rate: regular rate Rhythm: regular rhythm Heart sounds: S1 normal heart sound present and S2 normal heart sound present Skin Other: Good color, warm and dry Neuro General: oriented to person Psych Appearance: grossly normal Mental Status: mental status grossly normal Speech and movement: Normal speech and movement present Affect: normal affect Attitude: cooperative Thought process: Normal thought process present Insight: Good insight present (Psych) Judgement: Good judgement present (Psych) Results Reviewed Results Reviewed: Chest x-ray today shows no acute infiltrate or obvious pneumonia or other acute cardiopulmonary process. Assessment & Plan Assessment & Plan (1) Viral respiratory infection: Code(s): J98.8 - Other specified respiratory disorders; B97.89 - Other viral agents as the cause of diseases classified elsewhere Plan Patient is a 63-year-old female apparent viral respiratory infection for the last few days. Flu COVID and RSV results are pending. Steroid taper written, due to her underlying asthma and having a reactive cough at this point, with lung sounds clear to auscultation bilaterally. She has not overly wheezing, however she does report that her asthma usually does have a mostly cough component more than wheezing. She also has benzonatate at home, and just took the 1st capsule last night, so she can continue this as needed during the day. Codeine cough syrup was considered for her to use at night, however pharmacy reports that it is on back order and not available at this time. She had a recent diagnosis of atypical pneumonia, for which she completed antibiotics and chest x-ray looks unremarkable for acute cardiopulmonary disease at this time. We discussed that she should monitor symptoms closely however and follow-up if she persists, or go to the emergency department with worsening or worrisome symptoms. She might require follow-up chest x-ray and consideration for antibiotics at that point Orders: Orders XR chest 2V 11/26/24 R05.9 - Cough, unspecified SARS-CoV2/FLU/RSV 11/26/24 J06.9 - Acute upper respiratory infection, unspecified [employer] Covid-19 Ag 11/26/24 Z20.822 - Contact with and (suspected) exposure to COVID-19 Medications: New prednisone then take 2 and half tabs daily for 3 days, then take 2 tabs daily for 3 days, then take 1 and half tabs daily for 3 days, and then take 1 tab daily for 3 days 60 mg (3 x 20 mg) PO DAILY 30 tabs 0RF 3 days Coding Level of Care Code Est Pt Level 4 (60199) Diagnoses Viral respiratory infection J98.8; B97.89
== END 2024-11-26 11:27 | disposition home or self-care (01) ==
PROVIDERS: PCP Internal Medicine; Visit Provider Physician Assistant Medical
DX: J98.8 Other specified respiratory disorders (principal); B97.89 Other viral agents as the cause of diseases classified elsewhere

== ENCOUNTER 2024-11-26 09:17 | Outpatient (REF) | payer OTHER, SELFPAY ==
--- NOTE | ~2024-11-26 | XR_ITS ---
CLINICAL HISTORY: R05.9 - Cough, unspecified 2 view chest x-ray. Comparison: None Findings: The lungs are adequately expanded. No focal consolidation. No effusion or pneumothorax. Cardiac and mediastinal contours are within normal limits. No acute osseous abnormality Impression: No acute process. This document has been electronically signed by: Aroldo Murrieta MD on 11/26/2024 11:00:26
== END 2024-11-26 09:18 | disposition home or self-care (01) ==
LOC: HO.HMGCX 09:17
PROVIDERS: PCP Internal Medicine; Visit Provider Physician Assistant Medical
DX: R05.9 Cough, unspecified (principal); J98.8 Other specified respiratory disorders; B97.89 Other viral agents as the cause of diseases classified elsewhere
CPT/HCPCS: 71046

== ENCOUNTER → 2024-11-26 10:47 | Outpatient (BNV) | payer OTHER, SELFPAY | PROVIDERS: PCP Internal Medicine; Visit Provider Radiology Vascular & Interventional Radiology | DX: R05.9 Cough, unspecified (principal) | CPT/HCPCS: 71046 ==

== ENCOUNTER 2024-11-26 10:59 | Outpatient (REF) | payer OTHER, SELFPAY ==
[2024-11-26 15:50] LABS: Influenza A PCR NEGATIVE (Negative); Influenza B PCR NEGATIVE (Negative); Resp Syncy Virus RNA Qual PCR NEGATIVE (Negative); SARS COV2 PCR INHOUSE NEGATIVE (Negative)
== END 2024-11-26 11:00 | disposition home or self-care (01) ==
LOC: HO.LNP 10:59
PROVIDERS: Visit Provider Physician Assistant Medical
DX: J06.9 Acute upper respiratory infection, unspecified (principal)
CPT/HCPCS: 0241U

== ENCOUNTER 2025-01-11 11:05 | Outpatient (AMB) | payer OTHER, SELFPAY ==
--- NOTE | 2025-01-11 11:12 | AM.OFFWIN_ITS ---
Intake Vital Signs 01/11/25 11:17 Weight 182 lb BP 130/80 Blood Pressure Location Lt brachial Position Sitting Pulse 77 Pulse Source Pulse Oximeter Temp 98.1 F Temp Source Oral Pulse Oximetry (%) 97 Oxygen Delivery Method Room Air Intake Visit Reasons: EP SOB, lightheaded, cough, asthma Intake Note: Patient here for SOB, cough and lightheaded. Patient Tobacco Use Status: Former Tobacco user Allergies No Known Allergies Allergy (Verified 01/11/25 11:18) Do you need a note to return to daycare/school/sports/work: No HPI HPI Comments History of Present Illness Details History - The patient is a 64-year-old female pr esenting with breathing difficulties with associated cough for 2 weeks. - Previously treated with a two-week cou rse of prednisone (11/26/24) with temporary alleviation before recurrence of symptoms during a vacation from late November. - Symptoms reportedly exacerbated by exp osure to scents, specifically noting difficulty in breathing due to allergic reaction to frequent exposure to scented products. Patient states she was on a cruise and they were using for breathes in her room daily and she thinks that exacerbated her asthma because she has had a cough since then with no other respiratory symptoms. - Utilizes daily asthma management medic ation, Claritin, and Singulair, with reliance on albuterol for acute episodes, now used more frequently. - Experiencing dizziness related to inha ler use and increased cough severity without wheezing, fever, head congestion, ear pain or PEREZ. - Sensitive to multiple scents, especial ly perfumes, contributing to symptom exacerbation. - Observes additional respiratory sounds /whistle when reclined. Physical Exam General: Cooperative, healthy appearing, comfortable and no acute distress Orientation/consciousness: Patient oriented x3 Limitations: No limitations Head: Normal to inspection Ears: Hearing grossly normal bilaterally, external ears normal and TM's normal right, left TM with fluid but no infection Nose: Normal external nose present, Normal nares present and No nasal discharge present Face and sinus: Normal facial exam and Yes sinuses nontender Mouth: Normal oral and palatal mucosa present and moist mucous membranes Throat: Yes tonsils normal, Yes uvula midline. Posterior oropharynx erythema Eyes: Appearance normal, both eyes and all related structures Neck: Normal visual inspection Respiratory: Clear to auscultation bilaterally. Normal respiratory effort, able to speak in complete sentences, Actively coughing, no respiratory distress, not tachypneic, no tripod positioning and no use of accessory muscles Cardiovascular: Regular rate and rhythm. Normal S1 and S2 Skin: No rashes or lesions noted Neuro: Patient oriented x3 Extremities: Normal to inspection and Yes no clubbing, cyanosis or edema PFSH Medical History Physical exam Asthma Surgical History Hx of wisdom tooth extraction Hx of colonoscopy History of section History of tonsillectomy History of appendectomy Family History Mother No problems noted. Father No problems noted. Social History Housing: House Patient Tobacco Use Status: Former Tobacco user Tobacco use type: Cigarette e-Cigarette/Vaping Use: Never Used Second Hand Smoke Exposure: No service: No Current occupational status: employed Cognitive needs: No Hearing needs: No Vision needs: No Review of Systems Const All systems reviewed & are unremarkable except as noted in HPI and below Physical Exam Vital Signs: Last Vital Signs Temp 98.1 F 01/11/25 11:17 Pulse 77 01/11/25 11:17 BP 130/80 01/11/25 11:17 Pulse Ox 97 01/11/25 11:17 Oxygen Delivery Method Room Air 01/11/25 11:17 Assessment & Plan Assessment & Plan (1) Mild asthma with acute exacerbation: Code(s): J45.901 - Unspecified asthma with (acute) exacerbation Qualifiers: Asthma persistence: persistent Qualified Code(s): J45.31 - Mild persistent asthma with (acute) exacerbation Plan: VSS, pt well appearing and PE unremarkable. Likely mild asthma exacerbation secondary to Febrese use on recent cruise. The treatment of the asthma exacerbation will involve initiating a course of a Medrol Dosepak to provide a rapid taper of corticosteroids, aimed to reduce inflammation and alleviate symptoms effectively. Antihistamine therapy will be explored with Xyzal for better symptom management compared to the current regimen. The patient will continue albuterol as needed with emphasis on correct administration timing. Antitussive pearls will be used at night to manage the nocturnal cough. No further viral testing was considered necessary at this time given the clinical context. The focus remains on alleviating symptoms and avoiding exposure to allergens. Patient was informed and verbally consented to the use of an ambient scribe for clinic note documentation during this visit Medications: New methylprednisolone PO PER PKG DIR for 6 days 21 ea 0RF Coding Level of Care Code Est Pt Level 3 (34159) Diagnoses Mild persistent asthma with acute exacerbation J45.31 Asthma persistence: persistent
[2025-01-11 11:17] VITALS: BP 130/80; PULSE 77; TEMP 36.7; O2SAT 97
== END 2025-01-11 12:12 | disposition home or self-care (01) ==
PROVIDERS: PCP Internal Medicine; Visit Provider Physician Assistant
DX: J45.31 Mild persistent asthma with (acute) exacerbation (principal)

== ENCOUNTER → 2025-01-11 11:05 | Outpatient (BNVA) | payer OTHER, SELFPAY | PROVIDERS: PCP Internal Medicine; Visit Provider Physician Assistant ==

== ENCOUNTER 2025-03-20 15:39 | Outpatient (AMB) | payer OTHER, SELFPAY ==
[2025-03-20 15:48] VITALS: BP 120/78; PULSE 81; O2SAT 96; BMI 29.8
--- NOTE | 2025-03-20 15:48 | MHC.PC.OV ---
Vital Signs 03/20/25 15:48 Height 5 ft 6 in Weight 184 lb 8 oz BMI 29.8 BP 120/78 Blood Pressure Location Lt brachial Position Sitting Pulse 81 Pulse Source Pulse Oximeter Pulse Oximetry (%) 96 Oxygen Delivery Method Room Air Intake Visit Reasons: GLADYS Dr Feldman Errand Runner Required: No Accompanied by: Self / Same As Patient Allergies No Known Allergies Allergy (Verified 03/20/25 15:59) Medication List - Last Reconciled 03/20/25 by MYKEL Morgan albuterol sulfate 90 mcg/actuation 2 puffs inhalation Q4-6H PRN cetirizine (Zyrtec) 10 mg PO BID methylprednisolone PO PER PKG DIR for 6 days montelukast 10 mg PO BEDTIME Tobacco use date assessed: 03/20/25 Fall risk assessment: No Falls in past year Last assessed Fall Risk: 03/20/25 Dental Screening Dental Screen Date: 03/20/25 Did you have a dental visit in the last 12 months?: Yes Did you have a dental problem in the last 6 months where you did not have access to dental care?: No Was dental information given to patient?: Patient has dentist HPI GLADYS Dr Feldman HPI Details The patient is a 64-year-old female presenting transition of care from Dr. Feldman who retired. Presenting with asthma management and evaluation of hyperlipidemia. She has a history of asthma, primarily presenting with a persistent cough since June, without wheezing. Her asthma is exacerbated by perfumes, cleaning chemicals, and garza. In the past year, she experienced multiple respiratory infections, including a cold in late June, another in July, and walking pneumonia in August. She has been on steroids three times, once for walking pneumonia and twice for decreasing doses. She has also changed her antihistamine from Claritin to Zyrtec, taking it twice daily. She is currently coughing up thick phlegm mostly but at times mixed in with yellow streaks. Reports that she quit smoking 20 years ago. The patient has a history of hyperlipidemia, with total cholesterol levels noted to be high, including LDL cholesterol levels of 149 mg/dL and 137 mg/dL. She was advised to try dietary modifications to manage her cholesterol levels before considering medication. The patient reports a history of constipation, which has improved with the use of fiber supplements. She also mentioned a cyst on her back, which she is considering having removed in the future. [facility] Medical History Physical exam Asthma Surgical History Hx of wisdom tooth extraction Hx of colonoscopy History of section History of tonsillectomy History of appendectomy Family History Mother No problems noted. Father No problems noted. Social History Housing: House Patient Tobacco Use Status: Former Tobacco user Tobacco use type: Cigarette e-Cigarette/Vaping Use: Never Used Second Hand Smoke Exposure: No service: No Current occupational status: employed Cognitive needs: No Hearing needs: No Vision needs: No Questionnaire PHQ-9 Over the last 2 weeks, how often have you been bothered by any of the following problems? 1. Little interest or pleasure in doing things: not at all 2. Feeling down, depressed, or hopeless: not at all 3. Trouble falling or staying asleep, or sleeping too much: not at all 4. Feeling tired or having little energy: not at all 5. Poor appetite or overeating: not at all 6. Feeling bad about yourself - or that you are a failure or have let yourself or your family down: not at all 7. Trouble concentrating on things, such as reading the newspaper or watching television: not at all 8. Moving or speaking so slowly that other people could have noticed. Or the opposite - being so fidgety or restless that you have been moving around a lot more than usual: not at all 9. Thoughts that you would be better off or of hurting yourself in some way: not at all Total score: 0 Source: Developed by Drs. Caleb Lovett, Sarah Smith, Reinier Galdamez and colleagues, with an educational carroll from [employer]. Thrive Questionnaire Date Thrive assessed: 03/20/25 I am a: Patient What is your living situation today?: I have a steady place to live Within the past 12 months, did the food you bought not last and you didn't have the money to get more?: Never true Within the past 12 months, did you worry whether your food would run out before you got money to buy more?: Never true Do you have trouble paying for medicines?: No Do you have trouble getting transportation to medical appointments?: No Do you have trouble paying your heating and electricity bill?: No Do you have trouble taking care of your child, family member or friend?: No Do you have trouble with day-to-day activities such as bathing, preparing meals, shopping, managing finances, etc.?: No Are you currently unemployed and looking for a job?: No Are you interested in more education?: No Please select the resources that you would like help with: None Currently or been in a relationship where the following occur: No concerns reported THRIVE Score: 0 AUDIT C Alcohol Use Questionnaire (AUDIT-C) 1. How often do you have a drink containing alcohol?: 2-4 times a month 2. How many drinks containing alcohol do you have on a typical day when you are drinking?: 1 or 2 3. How often do you have six or more drinks on one occasion?: Less than monthly Total Score: 3 NATA-7 AMB Questionnaire NATA-7 Date NATA - 7 assessed: 03/20/25 Feeling nervous, anxious, or on edge: 0 = Not at all Not being able to stop or control worryin = Not at all Worrying too much about different things: 0 = Not at all Trouble relaxin = Not at all Being so restless that it is hard to sit still: 0 = Not at all Becoming easily annoyed or irritable: 0 = Not at all Feeling afraid as if something awful might happen: 0 = Not at all Total NATA-7 score (0-4 normal; 5-9 mild; 10-14 moderate; 15-21 severe): 0 Source: Developed by Drs. Caleb Lovett, Sarah Smith, Reinier Galdamez and colleagues, with an educational carroll from [employer]. Review of Systems Const Denies headache(s) Eyes Denies loss of vision ENT Denies vertigo, Denies dizziness, Denies headache(s) and Denies sore throat Card Denies chest pain, Denies leg edema and Denies lightheadedness Resp Reports cough, Denies hemoptysis and Denies wheezing GI Denies abdominal pain, Denies melena, Reports constipation (HX-improved with fiber), Denies diarrhea and Denies vomiting Denies urinary frequency, Denies dysuria and Denies urinary urgency Musc Denies arthralgias, Denies joint swelling, Denies numbness and Denies tingling Neuro Denies Abnormal speech present, Denies behavioral changes, Denies vertigo, Denies dizziness, Denies headache(s), Denies loss of vision, Denies memory loss, Denies numbness and Denies tingling Psych Denies anxiety, Denies behavioral changes, Denies depression, Denies memory loss and Denies panic attacks Rodrigo/Lymph Denies easy bleeding and Denies easy bruising Aller/Immun Denies wheezing Physical exam (Primary Care) Vital Signs: Last Vital Signs Pulse 81 03/20/25 15:48 BP 120/78 03/20/25 15:48 Pulse Ox 96 03/20/25 15:48 Oxygen Delivery Method Room Air 03/20/25 15:48 BMI result Body Mass Index 29.8 Tobacco/Smoking Status: Tobacco use Status Tobacco use date assessed 03/20/25 03/20/25 15:50 Patient Tobacco Use Status Former Tobacco user 03/20/25 15:50 Tobacco use type Cigarette 03/20/25 15:50 e-Cigarette/Vaping Use Never Used 03/20/25 15:50 PHQ-9: PHQ-9 Score PHQ-9: Total score 0 04/15/25 15:57 Thrive Assessment: Date of Thrive Assessment Date Thrive assessed 03/20/25 03/20/25 15:50 Currently or been in a relationship where the following occur: No concerns reported Const General: healthy appearing, no acute distress, alert and awake Nutritional Appearance: well nourished Orientation/consciousness: oriented to person, oriented to place and oriented to time HENMT Ears: TM's normal bilaterally General nose exam: Abnormal mucous membranes and turbinates present boggy and erythematous and Nasal discharge present purulent on the left Eyes Conjunctivae: conjunctivae normal Sclerae: sclerae normal Pupils: Equal, round and reactive pupils present Neck Neck: Yes no lymphadenopathy and Yes no JVD Thyroid: Thyroid normal Carotids: no bruits Resp Effort & Inspection: normal respiratory effort, Actively coughing Quality: productive (Mostly clear phlegm intermittently has yellow streaks) and not tachypneic Auscultation: no crackles, no rales, no rhonchi and no wheezes Cardio Rate: regular rate Rhythm: regular rhythm Heart sounds: no murmurs and normal S1 and S2 GI Palpation (GI): Soft to palpation, nontender, no hepatomegaly and no splenomegaly Auscultation: normal bowel sounds Skin General skin exam: no rashes or lesions noted and dry skin Neuro General: oriented to person, oriented to place and oriented to time Cranial nerves: Yes Equal, round and reactive pupils present Speech: No Abnormal speech present Gait exam (Neuro): Normal gait present Motor exam (neuro): no tremor noted Extrem Right upper extremity: full ROM Left upper extremity: full ROM Right lower extremity: full ROM; no edema Left lower extremity: full ROM; no edema Psych Mental Status: mental status grossly normal Speech and movement: Normal speech and movement present Affect: normal affect Attitude: cooperative Thought process: Normal thought process present Coding Level of Care Code Est Pt Level 3 (54794) Diagnoses Pure hypercholesterolemia E78.00 Hyperlipidemia type: pure hypercholesterolemia Asthma, unspecified asthma severity, unspecified whether complicated, unspecified whether persistent J45.909 Asthma complication type: unspecified Asthma persistence: unspecified Asthma severity: unspecified severity Constipation, unspecified constipation type K59.00 Constipation type: unspecified constipation type Rhinosinusitis J32.9 Time Spent (min) 33 Assessment & Plan Assessment & Plan (1) HLD (hyperlipidemia): Code(s): E78.5 - Hyperlipidemia, unspecified Category: Medical Qualifiers: Hyperlipidemia type: pure hypercholesterolemia Qualified Code(s): E78.00 - Pure hypercholesterolemia, unspecified Plan: Ongoing elevated LDL at 162, which is an increased from in the 130s. Discussed lifestyle modifications including dietary changes and physical activity. We will recheck lipid panel in 3 months (2) Asthma: Code(s): J45.909 - Unspecified asthma, uncomplicated Category: Medical Qualifiers: Asthma complication type: unspecified Asthma persistence: unspecified Asthma severity: unspecified severity Qualified Code(s): J45.909 - Unspecified asthma, uncomplicated Plan: Patient reports chronic cough and recurrent upper respiratory infections requiring antibiotics and prednisone. Exacerbating her asthma symptoms.. The patient is on albuterol sulfate 90 mcg/actuation 2 puffs inhalation q.4-6 hours p.r.n.. We will add Advair discuss 250-50 mcg/dose 1 inhalation b.i.d. p.r.n.. Continue montelukast 10 mg at bedtime. Pulmonary referral placed (3) Constipation: Code(s): K59.00 - Constipation, unspecified Category: Medical Qualifiers: Constipation type: unspecified constipation type Qualified Code(s): K59.00 - Constipation, unspecified Plan: History of constipation that improved with increased fiber. Continue dietary fiber and increase fluid intake (4) Rhinosinusitis: Code(s): J32.9 - Chronic sinusitis, unspecified Category: Medical Plan: The patient reports intermittent nasal congestion. Turbinates boggy and erythematous. Purulent drainage in the let nostril. C/o subacute cough, might be related. Augmentin 875-125 mg BID x7 days ordered. The patient was also placed on prednisone tapered. Benzonatate 200 mg b.i.d. p.r.n. ordered as well. Orders: Orders TSH reflex Free T4 3 Months J45.90 - Unspecified asthma, uncomplicated, E78.5 - Hyperlipidemia, unspecified, Z00.00 - Encounter for general adult medical examination without abnormal findings Vitamin D 25-OH Total 3 Months J45.90 - Unspecified asthma, uncomplicated, E78.5 - Hyperlipidemia, unspecified, Z00.00 - Encounter for general adult medical examination without abnormal findings Complete Blood Count Auto Diff 3 Months J45.90 - Unspecified asthma, uncomplicated, E78.5 - Hyperlipidemia, unspecified, Z00.00 - Encounter for general adult medical examination without abnormal findings Comprehensive [place]. Panel Fast 3 Months J45.90 - Unspecified asthma, uncomplicated, E78.5 - Hyperlipidemia, unspecified, Z00.00 - Encounter for general adult medical examination without abnormal findings UA CC w/rflx Micro + Cult 3 Months J45.909 - Unspecified asthma, uncomplicated, E78.5 - Hyperlipidemia, unspecified, Z00.00 - Encounter for general adult medical examination without abnormal findings Lipid Panel 3 Months J45.909 - Unspecified asthma, uncomplicated, E78.5 - Hyperlipidemia, unspecified, Z00.00 - Encounter for general adult medical examination without abnormal findings Medications: New benzonatate 200 mg PO BID PRN 60 caps 0RF cough prednisone 20 mg PO DAILY 3 tabs 0RF 3 days fluticasone propion-salmeterol 250-50 mcg/dose (Advair Diskus) 1 inh inhalation BID 60 ea 3RF J45.909 - Unspecified asthma, uncomplicated amoxicillin-pot clavulanate 875-125 mg 1 tab PO BID 14 tabs 0RF 7 days Changed From albuterol sulfate 90 mcg/actuation 2 puffs inhalation Q4-6H PRN 8.5 grams 5RF bronchospasm To albuterol sulfate 90 mcg/actuation 2 puffs inhalation Q4-6H PRN 8.5 grams 5RF bronchospasm Patient Instructions: The patient to follow up in 3 months
--- OUTSIDE RECORDS SUMMARY | 2025-03-20 17:07 | XMS_ITS | Patient Health Record ---
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 13 years old When did you stop smoking? 2004 How long has it been since you last smoked? < 1 month Additional Findings: Tobacco Non-User Current no n-smoker Alcohol Screen Question Answer Notes Did you have a drink containing alcohol in the p ast year? Yes Points 0 Interpretation Negative Tobacco use other than smoking: Question Answer Notes Are you an other tobacco user? No Plan Of Treatment No Information Insurance Providers Payer Name Payer Address Payer Phone Subscriber Number Group Number Insured Name Patient Relationship to Insured Coverage Start Date Coverage End Date [facility] [address] [place] [address] [phone] [id number] Yariel Skelton Self - patient is the insured Medical (General) History Medical History History ICD Code asthma Back,Hip,and Knee pain Broken bones Eczema Chicken pox Surgical History Surgery Date(Month/Year) section 01/1984
== END 2025-03-20 16:44 | disposition home or self-care (01) ==
LOC: HO.HMCH 15:40
DX: E78.00 Pure hypercholesterolemia, unspecified (principal); J45.909 Unspecified asthma, uncomplicated; K59.00 Constipation, unspecified; J32.9 Chronic sinusitis, unspecified

== ENCOUNTER → 2025-03-20 15:39 | Outpatient (BNVA) | payer OTHER, SELFPAY | DX: Z13.89 Encounter for screening for other disorder (principal) ==

== ENCOUNTER 2025-05-23 13:42 | Outpatient (REF) | payer OTHER, SELFPAY ==
[2025-05-23 15:08] LABS: MANUAL DIFF FLAG NO
[2025-05-23 15:58] LABS: Hematocrit 41.5 % (37.0-47.0); Hemoglobin 14.2 g/dl (12.0-16.0); Imm Gran Abs Auto 0.01 X10*3/uL (0.00-0.03); Imm Gran Pct Auto 0.2 % (0.0-0.4); Lymphocytes Absolute Auto 1.9 X10*3/uL (1.2-4.9); Mean Corpuscular HGB Conc 34.2 g/dl (31.0-35.0); Mean Corpuscular Hemoglobin 28.5 pg (27.0-33.0); Mean Corpuscular Volume 83.3 fL (80.0-98.0); NRBC Abs Auto 0.000 X10*3/uL (0.0-0.012); NRBC Pct Auto 0.0 /100WBC (0.0-0.2); Platelet Count 307 X10*3/uL (160-400); Red Blood Count 4.98 X10*6/uL (4.20-5.50); White Blood Count 5.0 X10*3/uL (4.8-10.8)
== END 2025-05-23 13:43 | disposition home or self-care (01) ==
LOC: HO.LAB 13:42
PROVIDERS: Visit Provider Internal Medicine
DX: J45.909 Unspecified asthma, uncomplicated (principal); Z87.891 Personal history of nicotine dependence
CPT/HCPCS: 36415; 82785; 85025

== ENCOUNTER 2025-05-23 13:42 | Outpatient (AMB) | payer OTHER, SELFPAY ==
--- NOTE | 2025-05-23 13:50 | MHC.OFFVIS ---
Vital Signs 05/23/25 13:51 Height 5 ft 6 in Weight 169 lb 12.095 oz BMI 27.4 BP 120/68 Blood Pressure Location Lt brachial Position Sitting Pulse 74 Pulse Source Pulse Oximeter Pulse Oximetry (%) 95 Oxygen Delivery Method Room Air Intake Visit Reasons: Asthma Intake Note: pt is here as a new patient for asthma/allergies which triggers a cough, her issues started back about a year. Gypsum Block Setter Required: No Allergies No Known Allergies Allergy (Verified 05/23/25 14:13) Medication List - Last Reconciled 05/23/25 by Maria Kumar MD albuterol sulfate 90 mcg/actuation 2 puffs inhalation Q4-6H PRN benzonatate 200 mg PO BID PRN cetirizine (Zyrtec) 10 mg PO BID fluticasone propion-salmeterol 250-50 mcg/dose (Advair Diskus) 1 inh inhalation BID montelukast 10 mg PO BEDTIME HPI HPI Asthma: Details: This 64 years old female. Is being seen for the 1st time for pulmonary evaluation and ongoing management. Her chief complaint is very frequent bouts of cough., with feeling of chest congestion , scratchy feeling in the throat and occasional wheeze. She started having the symptoms almost 30 years ago or more. Because initially her symptoms were more like runny nose postnasal discharge then leading to chest congestion, she had testing for allergies, and found to have sensitivity to lot of environmental items, almost everything. She was started on immunotherapy, but could not go beyond 1 injection, due to increased symptoms and inability to go for the injection every week. She has lived with the above symptoms , with working diagnosis of cough variant bronchial asthma, and allergic rhinitis. Luckily she has not had severe symptoms enough to cause hospitalization. She has been able to function but has been bothered by cough and chest congestion almost on a daily basis. For many years she has used montelukast 10 mg daily, and Zyrtec 10 mg 1 or 2 tablets daily. When symptoms are worse she has to use Zyrtec 10 mg b.i.d.. She has become quite used to Zyrtec tablets and does not get sleepy or drowsy even with 2 tablets a day. Recently fluticasone-salmeterol 250-50 was added and also she had a course of antibiotic after that she felt better than ever before but only for a while. She denies symptoms of GERD. Denies any frequent infections. She is very sensitive to body orders, sprays and fumes etc.. SHE IS NONSMOKER AND HAS NO ADDICTIONS. [facility] Medical History Allergic asthma Physical exam Asthma Surgical History Hx of wisdom tooth extraction Hx of colonoscopy History of section History of tonsillectomy History of appendectomy Family History Mother No problems noted. Father No problems noted. Social History Housing: House Patient Tobacco Use Status: Former Tobacco user Tobacco use type: Cigarette e-Cigarette/Vaping Use: Never Used Second Hand Smoke Exposure: No service: No Current occupational status: employed Cognitive needs: No Hearing needs: No Vision needs: No Review of Systems Const All systems reviewed & are unremarkable except as noted in HPI and below Eyes Reports no additional complaints ENT Reports nasal congestion and Reports nasal discharge Card Denies chest pain, Denies syncope, Denies irregular heart rhythm and Denies leg edema Resp Reports as per HPI GI Reports heartburn (OCCASIONAL) Reports no additional complaints Musc Reports no additional complaints Skin/Breast Reports system reviewed and no additional complaints, except as documented Neuro Reports no additional complaints and Denies syncope Psych Reports no additional complaints Endo Reports no additional complaints Rodrigo/Lymph Reports no additional complaints Aller/Immun Reports no additional complaints Physical Exam Vital Signs: Last Vital Signs Pulse 74 05/23/25 13:51 BP 120/68 05/23/25 13:51 Pulse Ox 95 05/23/25 13:51 Oxygen Delivery Method Room Air 05/23/25 13:51 BMI result Body Mass Index 27.4 Const General: healthy appearing, comfortable, no acute distress, alert and awake Orientation/consciousness: patient oriented x3 HEENT Head: Yes normal to inspection General nose exam: No nasal polyps present and No nasal discharge present Face and sinus: Yes sinuses nontender Mouth: oropharynx normal Throat: Yes posterior oropharynx normal Eyes General: appearance normal, both eyes and all related structures Neck Neck: Yes normal visual inspection, Yes no lymphadenopathy, Yes trachea midline and Yes no JVD Thyroid: Thyroid normal Chest Chest palpation & inspection: normal inspection of the chest, normal palpation of entire chest wall and no tenderness Resp Effort & Inspection: normal respiratory effort Auscultation: clear to auscultation bilaterally, no crackles and no wheezes Cardio Palpation: normal PMI Rate: regular rate Rhythm: regular rhythm Heart sounds: no gallops and no murmurs Peripheral pulses: Peripheral pulses 2+ throughout GI Palpation (GI): Soft to palpation, nontender, No hepatosplenomegaly present and no masses Auscultation: normal bowel sounds Back/Spine/Pelvis Thoracic/Lumbar Spine: thoracic and lumbar spine normal to inspection Skin General skin exam: no rashes or lesions noted Neuro General: patient oriented x3 and no focal motor deficits Cranial nerves: Yes CN's II-XII intact bilaterally Extrem General: Yes normal to inspection, Yes no clubbing, cyanosis or edema and Yes no calf tenderness Psych Appearance: grossly normal and well kempt Speech and movement: Normal speech and movement present Results Reviewed Results Reviewed: chest xray 11/26/24 Findings: The lungs are adequately expanded. No focal consolidation. No effusion or pneumothorax. Cardiac and mediastinal contours are within normal limits. No acute osseous abnormality Impression: No acute process. Assessment & Plan Assessment & Plan (1) Allergic asthma: Comment: Patient has longstanding history of allergic asthma. Presentation is more in the form of cough/ chest congestion. She is highly sensitive to the environmental triggers. Code(s): J45.909 - Unspecified asthma, uncomplicated Category: Medical Plan: We will do pulmonary function test . Continue using fluticasone-salmeterol 250-51 inhalation b.i.d. Continue to use albuterol HFA 2 puffs Q 6 hours p.r.n.. The medical regimen will be adjusted or modified after the pulmonary function test. Had a long discussion with the patient about the allergies and asthma, she seems to be well educated about her respiratory condition. (2) Allergic rhinitis: Comment: The allergic symptoms in the form of nasal congestion and postnasal discharge then leading to cough, actually preceded the onset of bronchial asthma. She has chronic rhino sinusitis, with recurrent acute exacerbations. And has chronic bronchial asthma associated with allergic rhinitis. She is already on montelukast and also taking double dose of Zyrtec on a daily basis. Code(s): J30.9 - Allergic rhinitis, unspecified Category: Medical Qualifiers: Allergic rhinitis trigger: unspecified Allergic rhinitis seasonality: unspecified Qualified Code(s): J30.9 - Allergic rhinitis, unspecified Plan: I am good to check her eosinophil count and IgE level, to see if she would qualify for biologic treatment. Short of that she will continue to avoid any triggers and allergens , and continue using the present medical regimen. Hours see her after the pulmonary function test in about 6 weeks. Orders: Orders Complete Blood Count Auto Diff Today J30.9 - Allergic rhinitis, unspecified, J45.909 - Unspecified asthma, uncomplicated Immunoglobulin E Today J30.9 - Allergic rhinitis, unspecified, J45.909 - Unspecified asthma, uncomplicated Coding Level of Care Code New Pt Level 4 (43200) Diagnoses Allergic asthma J45.909 Allergic rhinitis, unspecified seasonality, unspecified trigger J30.9 Allergic rhinitis trigger: unspecified Allergic rhinitis seasonality: unspecified
[2025-05-23 13:51] VITALS: BP 120/68; PULSE 74; O2SAT 95; BMI 27.4
--- OUTSIDE RECORDS SUMMARY | 2025-05-23 14:40 | XMS_ITS | Patient Health Record ---
Author Organization [facility] [place] Address [address] [address] Care Team Providers Care Enamel Finisher Name Role Phone Rodriguez Feldman MD Primary Care Provider Unavaila Raul Mina Unavailable [phone] Reason For Referral No Information Medications Medication [...] Insured Coverage Start Date Coverage End Date [facility] [address] [place] [address] [id number] Yariel Skelton Self - patient is the insured Medical (General) History Medical History History ICD Code asthma Back,Hip,and Knee pain Broken bones Eczema Chicken pox Surgical History Surgery Date(Month/Year) section 01/1984
== END 2025-05-23 14:38 | disposition home or self-care (01) ==
LOC: HO.HPS 13:43
PROVIDERS: Visit Provider Internal Medicine
DX: J45.909 Unspecified asthma, uncomplicated (principal); J30.9 Allergic rhinitis, unspecified
CPT/HCPCS: 99204

== ENCOUNTER 2025-06-21 06:59 | Outpatient (REF) | payer OTHER, SELFPAY ==
--- OUTSIDE RECORDS SUMMARY | 2025-06-21 07:01 | XMS_ITS | Patient Health Record ---
[facility] [place] Address [address] [place] [address] Care Team Providers Care Ribbon Weaver Name Role Phone Rodriguez Feldman MD Primary Care Provider Unavaila Raul Mina Unavailable [phone] Reason For Referral No Information Medications Medication [...] Insured Coverage Start Date Coverage End Date [facility] [address] [place] [address] [phone] [id number] Yariel Skelton Self - patient is the insured Medical (General) History Medical History History ICD Code asthma Back,Hip,and Knee pain Broken bones Eczema Chicken pox Surgical History Surgery Date(Month/Year) section 01/1984
[2025-06-21 10:20] LABS: Appearance Urine Clear; Glucose Urine UA Negative (Negative); PH 6.5 (5.0-9.0); Specific Gravity - Urine 1.015 (1.005-1.025); UMIC TRIGGER UACC YES
[2025-06-21 10:34] LABS: MANUAL DIFF FLAG NO
[2025-06-21 10:38] LABS: White Blood Count 4.5 X10*3/uL (4.8-10.8)
[2025-06-21 10:39] LABS: Hematocrit 42.7 % (37.0-47.0); Hemoglobin 13.9 g/dl (12.0-16.0); Imm Gran Abs Auto 0.00 X10*3/uL (0.00-0.03); Imm Gran Pct Auto 0.0 % (0.0-0.4); Lymphocytes Absolute Auto 1.7 X10*3/uL (1.2-4.9); Mean Corpuscular HGB Conc 32.6 g/dl (31.0-35.0); Mean Corpuscular Hemoglobin 27.6 pg (27.0-33.0); Mean Corpuscular Volume 84.7 fL (80.0-98.0); NRBC Abs Auto 0.000 X10*3/uL (0.0-0.012); NRBC Pct Auto 0.0 /100WBC (0.0-0.2); Platelet Count 302 X10*3/uL (160-400); Red Blood Count 5.04 X10*6/uL (4.20-5.50)
[2025-06-21 11:32] LABS: Alanine Aminotransferase 23 U/L (0-31); Albumin Level 4.3 g/dL (3.5-5.0); Alkaline Phosphatase 57 U/L (39-117); Anion Gap 10 (12-20); Aspartate Amino Transferase 30 U/L (5-31); Blood Urea Nitrogen 16 mg/dL (9-16); Calcium 9.4 mg/dL (8.4-10.2); Carbon Dioxide 27 mmol/L (22-29); Chloride 109 mmol/L (96-108); Cholesterol 186 mg/dL (<200); Estimated Glomerular Filt Rate > 60; HDL Cholesterol 44 mg/dL (>40); Potassium 3.9 mmol/L (3.3-5.1); Sodium 142 mmol/L (135-145); Total Protein 6.9 g/dL (6.5-8.0); Triglycerides 90 mg/dL (<150)
== END 2025-06-21 07:00 | disposition home or self-care (01) ==
LOC: HO.HMGCLDS 06:59
DX: Z00.00 Encounter for general adult medical examination without abnormal findings (principal); Z13.21 Encounter for screening for nutritional disorder; J45.909 Unspecified asthma, uncomplicated; E78.5 Hyperlipidemia, unspecified
CPT/HCPCS: 36415; 80053; 80061; 81001; 82306; 84443; 85025

== ENCOUNTER 2025-06-27 09:13 | Outpatient (AMB) | payer OTHER, SELFPAY ==
--- NOTE | 2025-06-27 09:18 | A.OFFPC_ITS ---
Vital Signs 06/27/25 09:19 Height 5 ft 6 in Weight 162 lb BMI 26.1 BP 98/62 Blood Pressure Location Lt brachial Position Sitting Respiration 18 Pulse 72 Pulse Source Pulse Oximeter Temp 99.8 F Temp Source Temporal Artery Scan Pulse Oximetry (%) 97 Oxygen Delivery Method Room Air Intake Visit Reasons: asthma/htn Pediatric Occupational Therapist Required: No Accompanied by: Self / Same As Patient Allergies No Known Allergies Allergy (Verified 06/27/25 09:55) Medication List - Last Reconciled 06/27/25 by MYKEL Morgan albuterol sulfate 90 mcg/actuation 2 puffs inhalation Q4-6H PRN cetirizine (Zyrtec) 10 mg PO BID fluticasone propion-salmeterol 250-50 mcg/dose (Advair Diskus) 1 inh inhalation BID montelukast 10 mg PO BEDTIME Tobacco use date assessed: 06/27/25 Fall risk assessment: No Falls in past year Last assessed Fall Risk: 06/27/25 Dental Screening Dental Screen Date: 06/27/25 Did you have a dental visit in the last 12 months?: Yes Did you have a dental problem in the last 6 months where you did not have access to dental care?: No Was dental information given to patient?: Patient has dentist HPI asthma/htn HPI Details The patient is a 64-year-old female presenting with ongoing management of allergic rhinitis and asthma. She reports experiencing significant postnasal drip, particularly during ragweed season, which she manages with antihistamines and Advair. The patient notes that while Advair provides immediate relief, she is concerned about long-term use due to cost and prefers to find a more affordable alternative. The patient also has a history of hyperlipidemia, which she has been managing through dietary changes and flaxseed oil supplementation. Recent lab results indicate an improvement in cholesterol levels, with a significant drop noted, which the patient attributes to her dietary efforts. Additionally, a trace of blood was found in her urine, which has not been previously noted due to infrequent testing. The plan is to repeat the urinalysis to ensure this finding is not persistent or indicative of a more serious condition. The patient will check with pharmacy if the Wexela inhaler would be cheaper [facility] Medical History Allergic asthma Physical exam Asthma Surgical History Hx of wisdom tooth extraction Hx of colonoscopy History of section History of tonsillectomy History of appendectomy Family History Mother No problems noted. Father No problems noted. Social History Housing: House Patient Tobacco Use Status: Former Tobacco user Tobacco use type: Cigarette e-Cigarette/Vaping Use: Never Used Second Hand Smoke Exposure: No service: No Current occupational status: employed Cognitive needs: No Hearing needs: No Vision needs: No Questionnaire Thrive Questionnaire Date Thrive assessed: 03/13/25 I am a: Patient What is your living situation today?: I have a steady place to live Within the past 12 months, did the food you bought not last and you didn't have the money to get more?: Never true Within the past 12 months, did you worry whether your food would run out before you got money to buy more?: Never true Do you have trouble paying for medicines?: No Do you have trouble getting transportation to medical appointments?: No Do you have trouble paying your heating and electricity bill?: No Do you have trouble taking care of your child, family member or friend?: No Do you have trouble with day-to-day activities such as bathing, preparing meals, shopping, managing finances, etc.?: No Are you currently unemployed and looking for a job?: No Are you interested in more education?: No Please select the resources that you would like help with: None Currently or been in a relationship where the following occur: No concerns reported THRIVE Score: 0 NATA-7 AMB Questionnaire NATA-7 Date NATA - 7 assessed: 03/20/25 Source: Developed by Drs. Caleb Lovett, Sarah Smith, Reinier Galdamez and colleagues, with an educational carroll from [employer]. Review of Systems Const Denies body aches, Denies chills, Denies fever(s), Denies headache(s) and Denies poor appetite Eyes Reports no additional complaints ENT Denies dysphagia, Denies dizziness, Denies headache(s), Reports nasal congestion, Denies odynophagia and Reports other (sneezing on and off) Card Denies chest pain, Denies syncope, Denies edema, Denies irregular heart rhythm, Denies lightheadedness and Denies dyspnea Resp Denies cough and Denies dyspnea GI Denies abdominal pain, Denies constipation, Denies dysphagia, Denies diarrhea, Denies nausea, Denies odynophagia and Denies vomiting Reports no additional complaints Musc Reports no additional complaints and Denies abnormal gait Skin/Breast Reports system reviewed and no additional complaints, except as documented Neuro Denies abnormal gait, Denies dizziness, Denies syncope and Denies headache(s) Psych Reports no additional complaints Physical exam (Primary Care) Vital Signs: Last Vital Signs Temp 99.8 F 06/27/25 09:19 Pulse 72 06/27/25 09:19 Resp 18 06/27/25 09:19 BP 98/62 06/27/25 09:19 Pulse Ox 97 06/27/25 09:19 Oxygen Delivery Method Room Air 06/27/25 09:19 BMI result Body Mass Index 26.1 Tobacco/Smoking Status: Tobacco use Status Tobacco use date assessed 06/27/25 06/27/25 09:21 Patient Tobacco Use Status Former Tobacco user 06/27/25 09:21 Tobacco use type Cigarette 06/27/25 09:21 e-Cigarette/Vaping Use Never Used 06/27/25 09:21 Thrive Assessment: Date of Thrive Assessment Date Thrive assessed 03/13/25 06/27/25 09:21 Currently or been in a relationship where the following occur: No concerns reported Const General: cooperative, healthy appearing, comfortable and no acute distress Orientation/consciousness: patient oriented x3 [facility] Head: Yes normocephalic Ears: hearing grossly normal bilaterally General nose exam: Abnormal mucous membranes and turbinates present erythematous bilateral Face and sinus: No sinus tenderness Throat: Yes posterior oropharynx normal Eyes General: appearance normal, both eyes and all related structures Conjunctivae: conjunctivae normal Neck Neck: Yes full ROM and Yes no lymphadenopathy Resp Effort & Inspection: normal respiratory effort Auscultation: clear to auscultation bilaterally, no crackles, no rales, no rhonchi and no wheezes Cardio Rate: regular rate Rhythm: regular rhythm Skin General skin exam: no rashes or lesions noted Neuro General: patient oriented x3 Gait exam (Neuro): Normal gait present Extrem General: Yes normal to inspection, Yes full ROM and No edema Psych Affect: normal affect Attitude: cooperative Insight: Good insight present (Psych) Judgement: Good judgement present (Psych) Results Reviewed Results Reviewed: Laboratory Tests 06/21/25 06/21/25 07:50 07:55 WBC 4.5 L RBC 5.04 Hgb 13.9 Hct 42.7 MCV 84.7 MCH 27.6 MCHC 32.6 RDW 13.7 Plt Count 302 Sodium 142 Potassium 3.9 Chloride 109 H Anion Gap 10 L BUN 16 Creatinine 0.80 Estimated GFR > 60 Fasting Glucose 88 Calcium 9.4 Total Bilirubin 0.5 AST 30 ALT 23 Alkaline Phosphatase 57 Total Protein 6.9 Albumin 4.3 Triglycerides 90 Cholesterol 186 LDL Cholesterol, Calc 124 H HDL Cholesterol 44 25-OH Vitamin D Total 58.9 TSH 1.59 Urine Color Yellow Urine Appearance Clear Urine pH 6.5 Ur Specific [place] 1.015 Urine Protein Negative Urine Glucose (UA) Negative Urine Ketones Negative Urine Blood Trace H Urine Nitrite Negative Ur Leukocyte Esterase Trace H Urine RBC 0-2 Urine WBC 0-5 Ur Squamous Epith Cells 0-2 Urine Bacteria None Seen Hyaline Casts 0-2 Coding Level of Care Code Est Pt Level 3 (64789) Diagnoses Pure hypercholesterolemia E78.00 Hyperlipidemia type: pure hypercholesterolemia Allergic rhinitis, unspecified seasonality, unspecified trigger J30.9 Allergic rhinitis seasonality: unspecified Allergic rhinitis trigger: unspecified Constipation, unspecified constipation type K59.00 Constipation type: unspecified constipation type Leukopenia, unspecified type D72.819 Leukopenia type: unspecified Extrinsic asthma, unspecified asthma severity, unspecified whether complicated, unspecified whether persistent J45.909 Asthma severity: unspecified severity Asthma persistence: unspecified Asthma complication type: unspecified Time Spent (min) 35 Assessment & Plan Assessment & Plan (1) HLD (hyperlipidemia): Code(s): E78.5 - Hyperlipidemia, unspecified Category: Medical Qualifiers: Hyperlipidemia type: pure hypercholesterolemia Qualified Code(s): E78.00 - Pure hypercholesterolemia, unspecified Plan: Patient triglycerides 90 decreased from 140, LDL 124 decreased from 162. The patient is advised to maintain her current dietary regimen, including flaxseed oil supplementation, to manage hyperlipidemia. Regular monitoring of cholesterol levels will continue to assess the effectiveness of dietary interventions. The patient has multiple other appointments attend. SDM: The patient will follow up in 6 months. (2) Allergic rhinitis: Comment: The allergic symptoms in the form of nasal congestion and postnasal discharge then leading to cough, actually preceded the onset of bronchial asthma. She has chronic rhino sinusitis, with recurrent acute exacerbations. And has chronic bronchial asthma associated with allergic rhinitis. She is already on montelukast and also taking double dose of Zyrtec on a daily basis. Code(s): J30.9 - Allergic rhinitis, unspecified Category: Medical Qualifiers: Allergic rhinitis seasonality: unspecified Allergic rhinitis trigger: unspecified Qualified Code(s): J30.9 - Allergic rhinitis, unspecified Plan: Limit exposure to allergens Air purifiers and dust filters Air conditioner in house, especially where sleeping Continue Zyrtec 10 mg and montelukast 10 mg at bedtime (3) Constipation: Code(s): K59.00 - Constipation, unspecified Category: Medical Qualifiers: Constipation type: unspecified constipation type Qualified Code(s): K59.00 - Constipation, unspecified Plan: Increase fiber in diet (fruits/vegetables 4-5 servings daily) Increase fluid intake and decrease caffeine/energy drinks (may cause mild dehydration) Encouraged regular exercise (e.g., biking, walking, running) (4) Decreased white blood cell count, unspecified: Code(s): D72.819 - Decreased white blood cell count, unspecified Category: Medical Qualifiers: Leukopenia type: unspecified Qualified Code(s): D72.819 - Decreased white blood cell count, unspecified Plan: Slightly low normal. We will continue to monitor (5) Allergic asthma: Comment: Patient has longstanding history of allergic asthma. Presentation is more in the form of cough/ chest congestion. She is highly sensitive to the environmental triggers. Code(s): J45.909 - Unspecified asthma, uncomplicated Category: Medical Qualifiers: Asthma severity: unspecified severity Asthma persistence: unspecified Asthma complication type: unspecified Qualified Code(s): J45.909 - Unspecified asthma, uncomplicated Plan: Lifestyle modifications like smoking cessation. Wear a mask when around irritants, fumes, or particulate matter (e.g., painting, lawn mowing). Increase humidification at home, especially in the winter. Annual flu shots and the pneumonia shot can mitigate exacerbation. Increase fluids if not contraindicated because of heart failure. Continue albuterol sulfate 90 mcg/actuation 2 puffs inhalation Q 4-6 H p.r.n., fluticasone propion-salmeterol 250-50 mcg/dose 1 inh BID, montelukast 10 mg at bedtime Plan Follow up in six-month Orders: Orders Complete Blood Count Auto Diff 6 Months D72.819 - Decreased white blood cell count, unspecified, E78.00 - Pure hypercholesterolemia, unspecified, J30.9 - Allergic rhinitis, unspecified, J45.909 - Unspecified asthma, uncomplicated, Z00.00 - Encounter for general adult medical examination without abnormal findings Comprehensive [place]. Panel Fast 6 Months E78.00 - Pure hypercholesterolemia, unspecified, J30.9 - Allergic rhinitis, unspecified, J45.909 - Unspecified asthma, uncomplicated, Z00.00 - Encounter for general adult medical examination without abnormal findings UA CC w/rflx Micro + Cult 6 Months E78.00 - Pure hypercholesterolemia, unspecified, J30.9 - Allergic rhinitis, unspecified, J45.909 - Unspecified asthma, uncomplicated, Z00.00 - Encounter for general adult medical examination without abnormal findings Vitamin D 25-OH Total 6 Months E78.00 - Pure hypercholesterolemia, unspecified, J30.9 - Allergic rhinitis, unspecified, J45.909 - Unspecified asthma, uncomplicated, Z00.00 - Encounter for general adult medical examination without abnormal findings TSH reflex Free T4 6 Months E78.00 - Pure hypercholesterolemia, unspecified, J30.9 - Allergic rhinitis, unspecified, J45.909 - Unspecified asthma, uncomplicated, Z00.00 - Encounter for general adult medical examination without abnormal findings Lipid Panel 6 Months E78.00 - Pure hypercholesterolemia, unspecified, J30.9 - Allergic rhinitis, unspecified, J45.909 - Unspecified asthma, uncomplicated, Z00.00 - Encounter for general adult medical examination without abnormal findings Medications: Refilled fluticasone propion-salmeterol 250-50 mcg/dose (Advair Diskus) 1 inh inhalation BID 60 ea 3RF J45.909 - Unspecified asthma, uncomplicated
[2025-06-27 09:19] VITALS: BP 98/62; PULSE 72; RESP 18; TEMP 37.7; O2SAT 97; BMI 26.1
--- OUTSIDE RECORDS SUMMARY | 2025-06-27 09:59 | XMS_ITS | Patient Health Record ---
Author [facility] [place] Address [address] [place] [address] Care Team Providers Care Auxiliary Operator Name Role Phone Rodriguez Feldman MD Primary Care Provider Unavaila Raul Mina Unavailable [phone] Reason For Referral No Information Medications Medication [...] Insured Coverage Start Date Coverage End Date [facility] [address] [place] [address] [phone] [id number] Yariel Skelton Self - patient is the insured Medical (General) History Medical History History ICD Code asthma Back,Hip,and Knee pain Broken bones Eczema Chicken pox Surgical History Surgery Date(Month/Year) section 01/1984
== END 2025-06-27 10:19 | disposition home or self-care (01) ==
LOC: HO.HMCH 09:14
DX: E78.00 Pure hypercholesterolemia, unspecified (principal); J30.9 Allergic rhinitis, unspecified; K59.00 Constipation, unspecified; D72.819 Decreased white blood cell count, unspecified; J45.909 Unspecified asthma, uncomplicated

== ENCOUNTER 2025-07-24 15:39 | Outpatient (AMB) | payer OTHER, SELFPAY ==
--- NOTE | 2025-07-24 15:41 | A.OFFPC_ITS ---
Vital Signs 07/24/25 15:42 Height 5 ft 6 in Weight 157 lb 2 oz BMI 25.4 BP 90/60 Blood Pressure Location Lt brachial Position Sitting Respiration 18 Pulse 76 Pulse Source Pulse Oximeter Temp 96.9 F Temp Source Temporal Artery Scan Pulse Oximetry (%) 98 Oxygen Delivery Method Room Air Intake Visit Reasons: annual exam Process Excellence Manager Required: No Accompanied by: Self / Same As Patient Allergies No Known Allergies Allergy (Verified 07/24/25 15:56) Medication List - Last Reconciled 07/24/25 by MYKEL Morgan albuterol sulfate 90 mcg/actuation 2 puffs inhalation Q4-6H PRN cetirizine (Zyrtec) 10 mg PO ONCE fluticasone propion-salmeterol 250-50 mcg/dose (Advair Diskus) 1 inh inhalation BID montelukast 10 mg PO BEDTIME Tobacco use date assessed: 07/24/25 Fall risk assessment: No Falls in past year Last assessed Fall Risk: 07/24/25 Dental Screening Dental Screen Date: 07/24/25 Did you have a dental visit in the last 12 months?: Yes Did you have a dental problem in the last 6 months where you did not have access to dental care?: No Was dental information given to patient?: Patient has dentist HPI annual exam HPI Details The patient is presenting for annual physical Dentist: up to date Eye: up to date Snellen: Right: Left: Corrected vision: yes, glasses STI screening: Colonoscopy: Four years ago-repeat in 10 years Pap Smer: due-has to make an appt, she is waiting until she is all set with her pulmonary workup mammogram: same ( had this done last year) PHQ-9: Flu: up to date COVID: up to date Tdap: Diet:low cholesterol, planning on increasing fiber. Fluids intake adequate Exercise: walks her dog twice a day-reports that she is planning on retiring next year, and plans to increase this then The patient is a 64-year-old female presenting for an annual physical examination. Regarding health maintenance, she had a colonoscopy four years ago with a recommendation for a repeat screening in 10 years. She has had a dental exam and an eye exam within the past year. She is due for a Pap smear and a mammogram but is delaying these procedures due to cost concerns related to her deductible, which she is managing alongside pulmonology appointments. Her mammogram last year identified a cyst which required two follow-up visits. The patient has already received her influenza and COVID-19 vaccines for the year and is due for a tetanus shot. She has asthma, managed with an Advair-type inhaler, the cost of which recently decreased to $87. The patient follows a low-cholesterol diet, is working to increase her fiber intake, and sometimes has difficulty consuming enough calories. Her fluid intake primarily consists of tea, as she dislikes the taste of tap water. Her exercise is limited to walking her dog twice daily. She reports recent upper back muscle tightness, which she attributes to cold weather, and occasional muscle cramps in her calves. [facility] Medical History Allergic asthma Physical exam Asthma Surgical History Hx of wisdom tooth extraction Hx of colonoscopy History of section History of tonsillectomy History of appendectomy Family History Mother No problems noted. Father No problems noted. Social History Housing: House Patient Tobacco Use Status: Former Tobacco user Tobacco use type: Cigarette e-Cigarette/Vaping Use: Never Used Second Hand Smoke Exposure: No service: No Current occupational status: employed Cognitive needs: No Hearing needs: No Vision needs: No Questionnaire Thrive Questionnaire Date Thrive assessed: 03/13/25 I am a: Patient What is your living situation today?: I have a steady place to live Within the past 12 months, did the food you bought not last and you didn't have the money to get more?: Never true Within the past 12 months, did you worry whether your food would run out before you got money to buy more?: Never true Do you have trouble paying for medicines?: No Do you have trouble getting transportation to medical appointments?: No Do you have trouble paying your heating and electricity bill?: No Do you have trouble taking care of your child, family member or friend?: No Do you have trouble with day-to-day activities such as bathing, preparing meals, shopping, managing finances, etc.?: No Are you currently unemployed and looking for a job?: No Are you interested in more education?: No Please select the resources that you would like help with: None Currently or been in a relationship where the following occur: No concerns reported THRIVE Score: 0 NATA-7 AMB Questionnaire NATA-7 Date NATA - 7 assessed: 03/20/25 Source: Developed by Drs. Caleb Lovett, Sarah Smith, Reinier Galdamez and colleagues, with an educational carroll from [employer]. Review of Systems Const Denies headache(s) Eyes Denies loss of vision ENT Denies vertigo, Denies dizziness, Denies headache(s) and Denies sore throat Card Denies chest pain, Denies leg edema and Denies lightheadedness Resp Denies cough, Denies hemoptysis and Denies wheezing GI Denies abdominal pain, Denies melena, Denies constipation, Denies diarrhea and Denies vomiting Denies urinary frequency, Denies dysuria and Denies urinary urgency Musc Denies arthralgias, Denies joint swelling, Denies numbness and Denies tingling Neuro Denies Abnormal speech present, Denies behavioral changes, Denies vertigo, Denies dizziness, Denies headache(s), Denies loss of vision, Denies memory loss, Denies numbness and Denies tingling Psych Denies anxiety, Denies behavioral changes, Denies depression, Denies memory loss and Denies panic attacks Rodrigo/Lymph Denies easy bleeding and Denies easy bruising Aller/Immun Denies wheezing Physical exam (Primary Care) Vital Signs: Last Vital Signs Temp 96.9 F 07/24/25 15:42 Pulse 76 07/24/25 15:42 Resp 18 07/24/25 15:42 BP 90/60 07/24/25 15:42 Pulse Ox 98 07/24/25 15:42 Oxygen Delivery Method Room Air 07/24/25 15:42 BMI result Body Mass Index 25.4 Tobacco/Smoking Status: Tobacco use Status Tobacco use date assessed 07/24/25 07/24/25 15:49 Patient Tobacco Use Status Former Tobacco user 07/24/25 15:49 Tobacco use type Cigarette 07/24/25 15:49 e-Cigarette/Vaping Use Never Used 07/24/25 15:49 Thrive Assessment: Date of Thrive Assessment Date Thrive assessed 03/13/25 07/24/25 15:49 Currently or been in a relationship where the following occur: No concerns reported Const General: healthy appearing, no acute distress, alert and awake Nutritional Appearance: well nourished Orientation/consciousness: oriented to person, oriented to place and oriented to time HENMT Ears: TM's normal bilaterally General nose exam: Normal nasal mucous membranes and turbinates present Eyes Conjunctivae: conjunctivae normal Sclerae: sclerae normal Pupils: Equal, round and reactive pupils present Neck Neck: Yes lymphadenopathy (Small right cervical lymph node) and Yes no JVD Thyroid: Thyroid normal Carotids: no bruits Resp Effort & Inspection: normal respiratory effort and not tachypneic Auscultation: no crackles, no rales, no rhonchi and no wheezes Cardio Rate: regular rate Rhythm: regular rhythm Heart sounds: no murmurs and normal S1 and S2 GI Palpation (GI): Soft to palpation, nontender, no hepatomegaly and no splenomegaly Auscultation: normal bowel sounds General: Yes no CVA tenderness Back/Spine/Pelvis Back: no CVA tenderness Cervical Spine: No Cervical spine tenderness Thoracic/Lumbar Spine: No thoracic spinal tenderness and No lumbar spinal tenderness Skin General skin exam: no rashes or lesions noted and dry skin Neuro General: oriented to person, oriented to place and oriented to time Cranial nerves: Yes Equal, round and reactive pupils present Speech: No Abnormal speech present Gait exam (Neuro): Normal gait present Motor exam (neuro): 5/5 motor strength present throughout and no tremor noted Deep tendon reflexes (DTR's): Right triceps reflex intensity grade: 2+, Left triceps reflex intensity grade: 2+, Rt Biceps (C5, C6): 2+, Left biceps reflex intensity grade: 2+, Right brachioradialis reflex intensity grade: 2+, Left brachioradialis reflex intensity grade: 2+, Right patellar reflex intensity grade: 2+ and Left patellar reflex intensity grade: 2+ Extrem Right upper extremity: full ROM Left upper extremity: full ROM Right lower extremity: full ROM; no edema Left lower extremity: full ROM; no edema Psych Mental Status: mental status grossly normal Speech and movement: Normal speech and movement present Affect: normal affect Attitude: cooperative Thought process: Normal thought process present Immunizations Tenivac (PF) 5 Lf unit-2 Lf unit/0.5 mL intramuscular syringe Performing Provider: MYKEL Morgan [facility] Administered by: Linette Holcomb CMA on 07/24/25 16:09 Dose Route Admin Location Dispensed Lot Number Expiration Date NDC Deli Manager 0.5 mL IM Right Deltoid 0.5 mL [id number] 12/27/26 00906-923-56 [employer] Total Dispensed Waste 0.5 mL 0 % VIS Given Date VIS Provided VIS Publication Date 07/24/25 Single Vaccine 21 Eligibility Eligibility Date Funding Source Not [facility] Eligible 07/24/25 Private Coding Level of Care Code New Pt Prev Care 40-64y(36960) Diagnoses Physical exam Z00.00 Pure hypercholesterolemia E78.00 Hyperlipidemia type: pure hypercholesterolemia Allergic rhinitis, unspecified seasonality, unspecified trigger J30.9 Allergic rhinitis trigger: unspecified Allergic rhinitis seasonality: unspecified Constipation, unspecified constipation type K59.00 Constipation type: unspecified constipation type Leukopenia, unspecified type D72.819 Leukopenia type: unspecified Extrinsic asthma, unspecified asthma severity, unspecified whether complicated, unspecified whether persistent J45.909 Asthma severity: unspecified severity Asthma persistence: unspecified Asthma complication type: unspecified Lymphadenopathy R59.1 Time Spent (min) 38 Assessment & Plan Assessment & Plan (1) Physical exam: Code(s): Z00.00 - Encounter for general adult medical examination without abnormal findings Category: Medical Plan: Preventative guidelines reviewed with the patient. She is due for a Pap smear and mammogram but is waiting until she completes her pulmonary workup before she schedules these appointments. TD given in office today. (2) HLD (hyperlipidemia): Code(s): E78.5 - Hyperlipidemia, unspecified Category: Medical Qualifiers: Hyperlipidemia type: pure hypercholesterolemia Qualified Code(s): E78.00 - Pure hypercholesterolemia, unspecified Plan: Patient triglycerides 90 decreased from 140, LDL 124 decreased from 162. The patient is advised to maintain her current dietary regimen, including flaxseed oil supplementation, to manage hyperlipidemia. Regular monitoring of cholesterol levels will continue to assess the effectiveness of dietary interventions. The patient has multiple other appointments attend. SDM: The patient will follow up in 6 months. (3) Allergic rhinitis: Comment: The allergic symptoms in the form of nasal congestion and postnasal discharge then leading to cough, actually preceded the onset of bronchial asthma. She has chronic rhino sinusitis, with recurrent acute exacerbations. And has chronic bronchial asthma associated with allergic rhinitis. She is already on montelukast and also taking double dose of Zyrtec on a daily basis. Code(s): J30.9 - Allergic rhinitis, unspecified Category: Medical Qualifiers: Allergic rhinitis trigger: unspecified Allergic rhinitis seasonality: unspecified Qualified Code(s): J30.9 - Allergic rhinitis, unspecified Plan: Limit exposure to allergens Air purifiers and dust filters Air conditioner in house, especially where sleeping Continue Zyrtec 10 mg and montelukast 10 mg at bedtime (4) Constipation: Code(s): K59.00 - Constipation, unspecified Category: Medical Qualifiers: Constipation type: unspecified constipation type Qualified Code(s): K59.00 - Constipation, unspecified Plan: Increase fiber in diet (fruits/vegetables 4-5 servings daily) Increase fluid intake and decrease caffeine/energy drinks (may cause mild dehydration) Encouraged regular exercise (e.g., biking, walking, running) (5) Decreased white blood cell count, unspecified: Code(s): D72.819 - Decreased white blood cell count, unspecified Category: Medical Qualifiers: Leukopenia type: unspecified Qualified Code(s): D72.819 - Decreased white blood cell count, unspecified Plan: Slightly low normal. We will continue to monitor (6) Allergic asthma: Comment: Patient has longstanding history of allergic asthma. Presentation is more in the form of cough/ chest congestion. She is highly sensitive to the environmental triggers. Code(s): J45.909 - Unspecified asthma, uncomplicated Category: Medical Qualifiers: Asthma severity: unspecified severity Asthma persistence: unspecified Asthma complication type: unspecified Qualified Code(s): J45.909 - Unspecified asthma, uncomplicated Plan: Lifestyle modifications like smoking cessation. Wear a mask when around irritants, fumes, or particulate matter (e.g., painting, lawn mowing). Increase humidification at home, especially in the winter. Annual flu shots and the pneumonia shot can mitigate exacerbation. Increase fluids if not contraindicated because of heart failure. Continue albuterol sulfate 90 mcg/actuation 2 puffs inhalation Q 4-6 H p.r.n., fluticasone propion-salmeterol 250-50 mcg/dose 1 inh BID, montelukast 10 mg at bedtime (7) Lymphadenopathy: Code(s): R59.1 - Generalized enlarged lymph nodes Category: Medical Plan: Small right cervical lymph node. She was recently sick, reports lymph node on left side that has resolved. We will continue to monitor Orders: Orders Td Immunization 07/24/25 Z23 - Encounter for immunization Medications: Refilled montelukast 10 mg PO BEDTIME 90 tabs 8RF fluticasone propion-salmeterol 250-50 mcg/dose (Advair Diskus) 1 inh inhalation BID 60 ea 3RF J45.909 - Unspecified asthma, uncomplicated albuterol sulfate 90 mcg/actuation 2 puffs inhalation Q4-6H PRN 8.5 grams 5RF bronchospasm
[2025-07-24 15:42] VITALS: BP 90/60; PULSE 76; RESP 18; TEMP 36.1; O2SAT 98; BMI 25.4
--- OUTSIDE RECORDS SUMMARY | 2025-07-24 18:42 | XMS_ITS | Patient Health Record ---
Author Organization [facility] alejo [place] Address [address] [place] [address] Care Team Providers Care Automatic Pilot Mechanic Name Role Phone Rodriguez Feldman MD Primary Care Provider Unavaila Raul Mina Unavailable [phone] Reason For Referral No Information Medications Medication [...] Insured Coverage Start Date Coverage End Date [facility] [address] [place] [address] [phone] [id number] Yariel Skelton Self - patient is the insured Medical (General) History Medical History History ICD Code asthma Back,Hip,and Knee pain Broken bones Eczema Chicken pox Surgical History Surgery Date(Month/Year) section 01/1984
== END 2025-07-24 16:16 | disposition home or self-care (01) ==
LOC: HO.HMCH 15:40
DX: Z23 Encounter for immunization (principal)

== ENCOUNTER → 2025-07-24 15:39 | Outpatient (BNVA) | payer OTHER, SELFPAY | DX: Z00.00 Encounter for general adult medical examination without abnormal findings (principal); E78.00 Pure hypercholesterolemia, unspecified; K59.00 Constipation, unspecified; D72.819 Decreased white blood cell count, unspecified; J45.909 Unspecified asthma, uncomplicated; R59.1 Generalized enlarged lymph nodes; Z23 Encounter for immunization | CPT/HCPCS: 90471; 90714 ==

== ENCOUNTER 2025-07-25 12:42 | Outpatient (AMB) | payer OTHER, SELFPAY ==
[2025-07-25 13:42] VITALS: BP 102/62; PULSE 73; O2SAT 98; BMI 25.3
--- NOTE | 2025-07-25 13:42 | MHC.OFFVIS ---
Vital Signs 07/25/25 13:42 Height 5 ft 6 in Weight 157 lb BMI 25.3 BP 102/62 Blood Pressure Location Lt brachial Position Sitting Pulse 73 Pulse Source Pulse Oximeter Pulse Oximetry (%) 98 Oxygen Delivery Method Room Air Intake Visit Reasons: Asthma/Same Day PFT Intake Note: pt is here for follow up and states she is feeling light headed due to pft, breathing abernathy she is okay Coffee Blender Required: No Billing Specialist: Billing Specialist offered & declined Allergies No Known Allergies Allergy (Verified 07/25/25 14:09) Medication List - Last Reconciled 07/25/25 by Maria Kumar MD albuterol sulfate 90 mcg/actuation 2 puffs inhalation Q4-6H PRN cetirizine (Zyrtec) 10 mg PO ONCE fluticasone propion-salmeterol 250-50 mcg/dose (Advair Diskus) 1 inh inhalation BID montelukast 10 mg PO BEDTIME Do you need a note to return to daycare/school/sports/work: No HPI HPI Asthma/Same Day PFT: Details: THIS 64 YEARS OLD FEMALE WITH LONGSTANDING HISTORY OF ALLERGIC RHINITIS AND MILD BRONCHIAL ASTHMA, IS HERE FOR FOLLOW-UP. CONTINUES TO HAVE INTERMITTENT NASAL CONGESTION WITH POSTNASAL DRIP BUT IT IS MILD AND BEARABLE. SHE DOES HAVE INTERMITTENT COUGH BUT NO WHEEZING ATTACKS. DOES NOT HAVE TO USE ANY RESCUE INHALER EVERY DAY. SHE STATES THAT SHE IS DOING WELL COMPARED TO BEFORE, AND NOT LOOKING FOR ANY ADDITIONAL MEDICINES. [facility] Medical History Allergic asthma Physical exam Asthma Surgical History Hx of wisdom tooth extraction Hx of colonoscopy History of section History of tonsillectomy History of appendectomy Family History Mother No problems noted. Father No problems noted. Social History Housing: House Patient Tobacco Use Status: Former Tobacco user Tobacco use type: Cigarette e-Cigarette/Vaping Use: Never Used Second Hand Smoke Exposure: No service: No Current occupational status: employed Cognitive needs: No Hearing needs: No Vision needs: No Review of Systems Const All systems reviewed & are unremarkable except as noted in HPI and below Eyes Reports no additional complaints ENT Reports nasal congestion and Reports nasal discharge Card Denies chest pain, Denies syncope, Denies irregular heart rhythm and Denies leg edema Resp Reports as per HPI GI Reports heartburn (OCCASIONAL) Reports no additional complaints Musc Reports no additional complaints Skin/Breast Reports system reviewed and no additional complaints, except as documented Neuro Reports no additional complaints and Denies syncope Psych Reports no additional complaints Endo Reports no additional complaints Rodrigo/Lymph Reports no additional complaints Aller/Immun Reports no additional complaints Physical Exam Vital Signs: Last Vital Signs Pulse 73 07/25/25 13:42 BP 102/62 07/25/25 13:42 Pulse Ox 98 07/25/25 13:42 Oxygen Delivery Method Room Air 07/25/25 13:42 BMI result Body Mass Index 25.3 Const General: healthy appearing, comfortable, no acute distress, alert and awake Orientation/consciousness: patient oriented x3 HEENT Head: Yes normal to inspection General nose exam: No nasal polyps present and No nasal discharge present Face and sinus: Yes sinuses nontender Mouth: oropharynx normal Throat: Yes posterior oropharynx normal Eyes General: appearance normal, both eyes and all related structures Neck Neck: Yes normal visual inspection, Yes no lymphadenopathy, Yes trachea midline and Yes no JVD Thyroid: Thyroid normal Chest Chest palpation & inspection: normal inspection of the chest, normal palpation of entire chest wall and no tenderness Resp Effort & Inspection: normal respiratory effort Auscultation: clear to auscultation bilaterally, no crackles and no wheezes Cardio Palpation: normal PMI Rate: regular rate Rhythm: regular rhythm Heart sounds: no gallops and no murmurs Peripheral pulses: Peripheral pulses 2+ throughout GI Palpation (GI): Soft to palpation, nontender, No hepatosplenomegaly present and no masses Auscultation: normal bowel sounds Back/Spine/Pelvis Thoracic/Lumbar Spine: thoracic and lumbar spine normal to inspection Skin General skin exam: no rashes or lesions noted Neuro General: patient oriented x3 and no focal motor deficits Cranial nerves: Yes CN's II-XII intact bilaterally Extrem General: Yes normal to inspection, Yes no clubbing, cyanosis or edema and Yes no calf tenderness Psych Appearance: grossly normal and well kempt Speech and movement: Normal speech and movement present Results Reviewed Results Reviewed: HAD COMPLETE PULMONARY FUNCTION TEST TODAY. ALL FLOW VOLUMES ARE NORMAL. TLC AND DIFFUSION CAPACITY ARE ALSO NORMAL. THERE WAS NO RESPONSE TO BRONCHODILATOR THERAPY. Assessment & Plan Assessment & Plan (1) Allergic asthma: Comment: Patient has longstanding history of allergic asthma. Presentation is more in the form of cough/ chest congestion. She is highly sensitive to the environmental triggers. Eiosinophil count 5.9 % Code(s): J45.909 - Unspecified asthma, uncomplicated Category: Medical Qualifiers: Asthma severity: unspecified severity Asthma persistence: unspecified Asthma complication type: unspecified Qualified Code(s): J45.909 - Unspecified asthma, uncomplicated Plan: Okay to continue using Advair 250-51 inhalation b.i.d.. But if cough remains well controlled then it can be reduced to only once a day. Albuterol HFA 2 puffs Q 6 hours p.r.n.. (2) Allergic rhinitis: Comment: The allergic symptoms in the form of nasal congestion and postnasal discharge then leading to cough, actually preceded the onset of bronchial asthma. She has chronic rhino sinusitis, with recurrent acute exacerbations. Code(s): J30.9 - Allergic rhinitis, unspecified Category: Medical Qualifiers: Allergic rhinitis trigger: unspecified Allergic rhinitis seasonality: unspecified Qualified Code(s): J30.9 - Allergic rhinitis, unspecified Plan: Continue to use montelukast 10 mg daily Continue cetirizine 10 mg once a day p.r.n. * DISCUSSED ABOUT TO BIOLOGIC TREATMENT FOR EOSINOPHILIA AND HIGH IGE LEVEL. HOWEVER AT PRESENT SYMPTOMS BEING WELL CONTROLLED SHE WOULD LIKE TO DEFER THIS MODALITY . Coding Level of Care Code Est Pt Level 3 (74301) Diagnoses Extrinsic asthma, unspecified asthma severity, unspecified whether complicated, unspecified whether persistent J45.909 Asthma severity: unspecified severity Asthma persistence: unspecified Asthma complication type: unspecified Allergic rhinitis, unspecified seasonality, unspecified trigger J30.9 Allergic rhinitis trigger: unspecified Allergic rhinitis seasonality: unspecified
== END 2025-07-25 14:09 | disposition home or self-care (01) ==
LOC: HO.HPS 12:44
PROVIDERS: Visit Provider Internal Medicine
DX: J45.909 Unspecified asthma, uncomplicated (principal); J30.9 Allergic rhinitis, unspecified
CPT/HCPCS: 99213

== ENCOUNTER 2025-07-25 12:43 | Outpatient (REF) | payer OTHER, SELFPAY ==
--- NOTE | 2025-07-25 13:05 | PFT_ITS ---
Flows: FEV1: 122 % of predicted at 3.08 L FVC: 126 % of predicted at 4.09 L FEV1/FVC: 75 % Bronchodilator response: Absent Volumes: Total lung capacity: 105 % of predicted at 5.70 L Residual volume: 90 % of predicted at 1.76 L Slow vital capacity: 114 % of predicted at 3.94 L Expiratory reserve volume: 103 % of predicted at 0.87 L Diffusion capacity: Normal Impression: No obstructive or restrictive ventilatory defect. No bronchodilator response. Essentially normal pulmonary function test. MTDD
[2025-07-25 13:43] VITALS: PULSE 65
--- OUTSIDE RECORDS SUMMARY | 2025-07-25 15:59 | XMS_ITS | Patient Health Record ---
Author Organization [facility] alejo [place] Address [address] [place] [address] Care Team Providers Care Petroleum Refinery Operator Name Role Phone Rodriguez Feldman MD Primary Care Provider Unavaila Raul Mina Unavailable [phone] Reason For Referral No Information Medications Medication [...] Insured Coverage Start Date Coverage End Date [facility] [address] [place] [address] [id number] Yariel Skelton Self - patient is the insured Medical (General) History Medical History History ICD Code asthma Back,Hip,and Knee pain Broken bones Eczema Chicken pox Surgical History Surgery Date(Month/Year) section 01/1984
== END 2025-07-25 12:44 | disposition home or self-care (01) ==
LOC: HO.RESP 12:43
PROVIDERS: Visit Provider Internal Medicine
DX: J45.909 Unspecified asthma, uncomplicated (principal)
CPT/HCPCS: 94060; 94640; 94727; 94729